=== PATIENT | female | born 1980 | race African-American/Black ===

== ENCOUNTER 2018-08-28 17:45 | Inpatient (IN) | payer MEDICAID ==
--- NOTE | 2018-08-28 20:01 | ER Document Report ---
ED Medical Screen (RME) - General Chief Complaint: Abdominal Pain Stated Complaint: ABDOMINAL PAIN Time Seen by Provider: 08/28/18 19:55 Mode of Arrival: Ambulatory Information source: Patient Notes: 38-year-old female presents emergency department with complaints of diffuse abdominal cramping. She states is been present for the last 2 days. She has had associated nausea but denies any vomiting, diarrhea, constipation. Patient states that she has had an abnormal odor with her urine and abnormal vaginal discharge. The vaginal discharge is a white color. Patient is concerned about sexually transmitted diseases and is requesting a pelvic examination. I have greeted and performed a rapid initial assessment of this patient. A comprehensive ED assessment and evaluation of the patient, analysis of test results and completion of the medical decision making process will be conducted by additional ED providers. PHYSICAL EXAMINATION: GENERAL: Well-appearing, well-nourished and in no acute distress. HEAD: Atraumatic, normocephalic. EYES: Pupils equal round extraocular movements intact, conjunctiva are normal. ENT: Nares patent NECK: Normal range of motion LUNGS: No respiratory distress Musculoskeletal: Normal range of motion NEUROLOGICAL: Normal speech, normal gait. PSYCH: Normal mood, normal affect. SKIN: Warm, Dry, normal turgor, no rashes or lesions noted. TRAVEL OUTSIDE OF THE [place] IN LAST 30 DAYS: No - Related Data Allergies/Adverse Reactions: acetaminophen [From Vicodin] Allergy (Verified 03/17/16 00:00) ciprofloxacin [From Cipro] Allergy (Verified 03/17/16 00:00) ciprofloxacin HCl [From Cipro] Allergy (Verified 03/17/16 00:00) hydrocodone bitartrate [From Vicodin] Allergy (Verified 03/17/16 00:00) Past Medical History Endocrine Medical History: Reports: Hx Hypothyroidism Past Surgical History: Reports: Hx Gynecologic Surgery - D&C - Immunizations Hx Diphtheria, Pertussis, Tetanus Vaccination: Yes Physical Exam - Vital signs Vitals: Temp Pulse Resp BP Pulse Ox 97.7 F 84 20 122/74 100 08/28/18 18:10 08/28/18 18:10 08/28/18 18:10 08/28/18 18:10 08/28/18 18:10 Course - Vital Signs Vital signs: Temp Pulse Resp BP Pulse Ox 97.7 F 84 20 122/74 100 08/28/18 18:10 10/15/18 18:10 08/28/18 18:10 08/28/18 18:10 08/28/18 18:10 Doctor's Discharge - Discharge Referrals: DINAH GARCIA MD [Primary Care Provider] - Follow up as needed
[2018-08-28 20:32] LABS: ABSOLUTE EOSINOPHILS # (AUTO) 0.3 10^3/uL (0.0-0.6); ABSOLUTE MONOCYTES (AUTO) 1.2 10^3/uL (0.1-1.4); ABSOLUTE NEUT (AUTO) 7.1 10^3/uL (1.7-8.2); BASOPHILS % (AUTO) 0.4 % (0-2); EOSINOPHILS % (AUTO) 2.3 % (0-6); HEMATOCRIT 36.8 % (36.0-47.0); HEMOGLOBIN 12.8 g/dL (12.0-15.5); LYMPHOCYTES % (AUTO) 25.7 % (13-45); MEAN CORPUSCULAR HEMOGLOBIN 32.9 pg (27.0-33.4); MEAN CORPUSCULAR HGB CONC 34.9 g/dL (32.0-36.0); MEAN CORPUSCULAR VOLUME 94 fl (80-97); MONOCYTES % (AUTO) 10.5 % (3-13); PLATELET COUNT 472 10^3/uL (150-450); SEGMENTED NEUTROPHILS % (AUTO) 61.1 % (42-78); TOTAL CELLS COUNTED % (AUTO) 100 %; WHITE BLOOD COUNT 11.6 10^3/uL (4.0-10.5)
[2018-08-28 20:52] LABS: ALANINE AMINOTRANSFERASE 16 U/L (9-52); ALBUMIN 4.1 g/dL (3.5-5.0); ALKALINE PHOSPHATASE 57 U/L (38-126); ANION GAP 10 (5-19); ASPARTATE AMINO TRANSFERASE 13 U/L (14-36); BILIRUBIN,DIRECT 0.3 mg/dL (0.0-0.4); BILIRUBIN,TOTAL 0.7 mg/dL (0.2-1.3); BLOOD UREA NITROGEN 8 mg/dL (7-20); CALCIUM 9.1 mg/dL (8.4-10.2); CARBON DIOXIDE 27 mmol/L (22-30); CHLORIDE 103 mmol/L (98-107); GLUCOSE 54 mg/dL (75-110); LIPASE 79.4 U/L (23-300); POTASSIUM 3.8 mmol/L (3.6-5.0); SODIUM 139.6 mmol/L (137-145)
[2018-08-28 21:17] LABS: APPEARANCE,URINE CLOUDY; BILIRUBIN,URINE NEGATIVE (NEGATIVE); COLOR,URINE YELLOW; GLUCOSE, URINE NEGATIVE (NEGATIVE); KETONES,URINE NEGATIVE (NEGATIVE); LEUKOCYTE ESTERASE,URINE LARGE (NEGATIVE); NITRITE,URINE NEGATIVE (NEGATIVE); PROTEIN,URINE NEGATIVE (NEGATIVE); URINE SPECIFIC GRAVITY 1.013
[2018-08-28] MEDS ORDERED: DEXTROSE 50%-WATER 25 GM/50 ML DISP.SYRIN IV ONE (22:04)
[2018-08-28] MEDS ORDERED: NORMAL SALINE 1000 ML 1,000 ML IV ONE (22:06)
--- NOTE | 2018-08-28 22:40 | RADIOLOGY REPORT (SQ) ---
EXAM DESCRIPTION: XR ABDOMEN SUPINE AND ERECT WITH CHEST (ABD ACUTE SERIES) COMPLETED DATE/TME: 08/28/2018 19:59 CLINICAL HISTORY: 38 years, Female, diffuse abdominal pain COMPARISON: EXAM DESCRIPTION: CLINICAL HISTORY: diffuse abdominal pain COMPARISON: None FINDINGS: Frontal view of the chest and supine and upright images of the abdomen were submitted. Cardiac silhouette is within normal limits. There is no focal parenchymal or pleural disease. There is no free air in the abdomen. There is no evidence of bowel obstruction. IMPRESSION: No acute abnormalities. NUMBER OF VIEWS: TECHNIQUE: LIMITATIONS: None. FINDINGS: IMPRESSION: 2010 [facility] [employer]- All Rights Reserved
--- NOTE | 2018-08-28 23:04 | ER Document Report ---
ED GI/ <CHANTELLE ZAMORA - Last Filed: 08/28/18 23:05> - General Mode of Arrival: Ambulatory Information source: Patient TRAVEL OUTSIDE OF THE [place] IN LAST 30 DAYS: No - HPI Patient complains to provider of: Abdominal pain Onset: Last week Timing/Duration: Gradual Quality of pain: Achy, Dull Severity at maximum: Severe Severity in ED: Severe Pain Level: 5 Location: Suprapubic Vaginal bleeding (Compared to normal period): None OB ultrasound done: No Sexual history: Active, Unprotected intercourse Exacerbated by: Movement Relieved by: Remaining still Similar symptoms previously: No Recently seen / treated by doctor: No <DEJON GALAVIZ - Last Filed: 08/29/18 05:17> - General Chief Complaint: Abdominal Pain Stated Complaint: ABDOMINAL PAIN Time Seen by Provider: 08/28/18 19:55 - Related Data Allergies/Adverse Reactions: acetaminophen [From Vicodin] Allergy (Verified 03/17/16 00:00) ciprofloxacin [From Cipro] Allergy (Verified 03/17/16 00:00) ciprofloxacin HCl [From Cipro] Allergy (Verified 03/17/16 00:00) hydrocodone bitartrate [From Vicodin] Allergy (Verified 03/17/16 00:00) Penicillins Allergy (Verified 08/29/18 03:26) Past Medical History - General Information source: Patient - Social History Smoking Status: Unknown if Ever Smoked Family History: Reviewed & Not Pertinent Patient has suicidal ideation: No Patient has homicidal ideation: No Endocrine Medical History: Reports: Hx Hypothyroidism Renal/ Medical History: Denies: Hx Peritoneal Dialysis Past Surgical History: Reports: Hx Gynecologic Surgery - D&C - Immunizations Hx Diphtheria, Pertussis, Tetanus Vaccination: Yes <DEJON GALAVIZ - Last Filed: 08/29/18 05:17> Review of Systems - Review of Systems Constitutional: denies: Chills, Fever EENT: No symptoms reported Cardiovascular: No symptoms reported Respiratory: No symptoms reported Gastrointestinal: Abdominal pain Genitourinary: No symptoms reported Female Genitourinary: Vaginal discharge Musculoskeletal: No symptoms reported Skin: No symptoms reported Hematologic/Lymphatic: No symptoms reported Neurological/Psychological: No symptoms reported -: Yes All other systems reviewed and negative <DEJON GALAVIZ - Last Filed: 08/29/18 05:17> Physical Exam - Genitourinary External exam: Normal Speculum exam: Cervix closed, Vaginal discharge - gree tinged Vaginal bleeding: None Bimanuel exam: Cervical motion tender, Adnexal tenderness. No: Bladder/ Urethral tender, Adnexal mass, Uterus enlarged <CHANTELLE ZAMORA - Last Filed: 08/28/18 23:05> - Vital signs Interpretation: Normal - General General appearance: Appears well, Alert - HEENT Head: Normocephalic, Atraumatic Eyes: Normal Pupils: PERRL - Respiratory Respiratory status: No respiratory distress Chest status: Nontender Breath sounds: Normal Chest palpation: Normal - Cardiovascular Rhythm: Regular Heart sounds: Normal auscultation Murmur: No - Abdominal Inspection: Normal Distension: No distension Bowel sounds: Normal Tenderness: Tender - RLQ Organomegaly: No organomegaly - Back Back: Normal, Nontender - Extremities General upper extremity: Normal inspection, Nontender, Normal color, Normal ROM , Normal temperature General lower extremity: Normal inspection, Nontender, Normal color, Normal ROM , Normal temperature, Normal weight bearing. No: Kerri's sign - Neurological Neuro grossly intact: Yes Cognition: Normal Orientation: AAOx4 [place] Coma Scale Eye Opening: Spontaneous [place] Coma Scale Verbal: Oriented [place] Coma Scale Motor: Obeys Commands [place] Coma Scale Total: 15 Speech: Normal Motor strength normal: LUE, RUE, LLE, RLE Sensory: Normal - Psychological Associated symptoms: Normal affect, Normal mood - Skin Skin Temperature: Warm Skin Moisture: Dry Skin Color: Normal <DEJON GALAVIZ C - Last Filed: 08/29/18 05:17> - Vital signs Vitals: Temp Pulse Resp BP Pulse Ox 97.7 F 84 20 122/74 100 08/28/18 18:10 08/28/18 18:10 08/28/18 18:10 08/28/18 18:10 08/28/18 18:10 Course - Laboratory Result Diagrams: 08/28/18 20:08 08/28/18 20:08 <CHANTELLE ZAMORA - Last Filed: 08/28/18 23:05> - Laboratory Result Diagrams: 08/28/18 20:08 08/28/18 20:08 - Diagnostic Test Radiology reviewed: Image reviewed, Reports reviewed - Transfer of Care Care transferred to following provider: I discussed patient care with the OB/ PAINTER MAINTENANCE doctor fire control system installer Dr Ibarra. <DEJON GALAVIZ - Last Filed: 08/29/18 05:17> - Vital Signs Vital signs: Temp Pulse Resp BP Pulse Ox 98.2 F 99 16 123/79 97 08/28/18 23:09 08/28/18 23:09 08/28/18 23:09 08/28/18 23:09 08/28/18 23:09 - Laboratory Laboratory results interpreted by me: 08/28/18 08/28/18 08/28/18 20:08 20:08 21:00 WBC 11.6 H Plt Count 472 H Glucose 54 L AST 13 L Urine Blood MODERATE H Urine Urobilinogen 2.0 H Ur Leukocyte Esterase LARGE H - Transfer of Care Notes: 08/29/18 03:11 Abdominal pain. Pelvic inflammatory disease. Tubo-ovarian abscess. (DEJON GALAVIZ) Critical Care Note - Critical Care Note Total time excluding time spent on procedures (mins): 50 <DEJON GALAVIZ - Last Filed: 08/29/18 05:17> Discharge <CHANTELLE ZAMORA - Last Filed: 08/28/18 23:05> - Discharge Admitting Provider: Dr Dana Ibarra Unit Admitted: Post <DEJON GALAVIZ - Last Filed: 08/29/18 05:17> - Discharge Clinical Impression: PID (acute pelvic inflammatory disease), TOA (tubo-ovarian abscess) Abdominal pain Qualifiers: Abdominal location: right lower quadrant Qualified Code(s): R10.31 - Right lower quadrant pain Condition: Stable Disposition: ADMITTED INPATIENT Referrals: DINAH GARCIA MD [ACTIVE STAFF] - Follow up as needed
[2018-08-28] MEDS ORDERED: CEFTRIAXONE 2 GM/D5W RTU 2 GM/50 ML RTUPB IV ONE (23:06)
[2018-08-28] MEDS ORDERED: ONDANSETRON HCL INJ/PF 4 MG/2 ML SDV IV ONE (23:07)
[2018-08-28] MEDS ORDERED: DOXYCYCLINE HYCLATE 100 MG TABLET PO ONE (23:07)
[2018-08-28] MEDS ORDERED: METRONIDAZOLE 500 MG TABLET PO ONE (23:07)
[2018-08-28] MEDS ORDERED: AZITHROMYCIN 250 MG TABLET PO ONE (23:08)
[2018-08-28 23:19] LABS: BACTERIA (WET MOUNT) 4+ BACTERIA SEEN; EPITHELIALS (WET MOUNT) 3+ EPITHELIALS SEEN; T.VAGINALIS (WET MOUNT) TRICHOMONAS SEEN; WBCS (WET MOUNT) 3+ WBCS SEEN; YEAST (WET MOUNT) NO YEAST SEEN
--- NOTE | 2018-08-29 00:25 | RADIOLOGY REPORT (SQ) ---
EXAM DESCRIPTION: US TRANSVAGINAL COMPLETED DATE/TME: 08/28/2018 23:04 CLINICAL HISTORY: 38 years Female Pelvic pain COMPARISON: None. TECHNIQUE: Transvaginal duplex imaging performed to evaluate the pelvis. FINDINGS: Uterus measures 10.4 x 5.7 cm. Small amount of free fluid in the cul-de-sac. Cervix measures 3.7 cm and is closed. Endometrial stripe 7 mm. Echogenic heterogeneous area in the posterior aspect of the uterine body likely a small fibroid measuring 2 x 2.2 cm. Dilated thick walled serpiginous structure in the right adnexa with echogenic debris. Findings suggest pyosalpinx. The right ovary is not clearly identified. Left ovary is not seen. IMPRESSION: Probable fibroid uterus Small amount of free fluid Dilated thick walled structure in the right adnexa with internal debris suggesting possible pyosalpinx. This could be further evaluated with contrast-enhanced CT Neither ovary is clearly identified
[2018-08-29] MEDS ORDERED: CEFTRIAXONE INJ 1000 MG VIAL ONE (00:45)
[2018-08-29 00:51] LABS: CHLAM PCR NOT DETECTED (NOT DETECT); GON PCR NOT DETECTED (NOT DETECT)
[2018-08-29] MEDS ORDERED: HYDROMORPHONE HCL INJ/PF 2 MG/ML AMPULE IV ONE ×3 (00:53→07:45)
[2018-08-29] MEDS ORDERED: METRONIDAZOLE 500 MG TABLET PO ONE (02:00)
--- NOTE | 2018-08-29 05:07 | RADIOLOGY REPORT (SQ) ---
EXAM DESCRIPTION: CT ABDOMEN PELVIS WITH IV CONTRAST COMPLETED DATE/TME: 08/28/2018 22:04 CLINICAL HISTORY: GENERALIZED abdominal pain COMPARISON: None Available. TECHNIQUE: CT of the abdomen and pelvis performed following IV administration of 80 mL of Omnipaque 350. DLP: 1759.65 mGycm FINDINGS: Lung Bases: The visualized lung bases are clear. Bones: No destructive bone lesions identified. Abdomen: Liver: The liver has normal size and density. No intrahepatic mass or biliary dilatation. Gallbladder: No calcified gallstones. Spleen, Pancreas, and Adrenal Glands: The spleen, pancreas, and adrenal glands are unremarkable. Kidneys: The kidneys have normal size and contour without evidence of solid mass or hydronephrosis. Vasculature: The aorta and IVC have normal caliber and position. The portal vein is patent. The proximal visceral and renal arteries are patent. Stomach: The stomach and duodenum have normal course. Other: No free intraperitoneal air. Mild shotty periaortic lymph nodes are likely reactive. Pelvis: Bladder: Urinary bladder is unremarkable. Bowel: No dilated loops of large or small bowel. Appendix: Normal appendix. Pelvis: Thick-walled tubular structure in the right adnexa with adjacent fat stranding. Small amount of free pelvic fluid. This structure measures approximately 4.5 x 3.8 cm in greatest axial dimensions. The right ovary is not well delineated. IMPRESSION: 1. Thick-walled tubular structure in the posterior right adnexa with adjacent inflammatory change. These findings are most consistent with pyosalpinx. Differential considerations include hydrosalpinx, tubo-ovarian abscess and adnexal torsion. Urgent finding reported to Dr. Tolbert at 08/29/2018 4:04 AM CDT This exam was performed according to our departmental dose-optimization program, which includes automated exposure control, adjustment of the mA and/or kV according to patient size and/or use of iterative reconstruction technique.
--- NOTE | 2018-08-29 07:29 | PDOC H&P ---
History of Present Illness Admission Date/PCP: 08/29/18 05:28 CYN SERNA Patient complains of: Lower abdominal pain and chest pain History of Present Illness: COLEMAN HENRIQUEZ is a 38 year old , presented to the emergency department secondary to lower abdominal pain which started on Tuesday. Patient stated that she also had some chest pain which made it hard to breathe. Patient denies any abnormal vaginal discharge. She stated that she had foul- smelling urine. Patient denies fevers but had some chills. She admitted to nausea but no vomiting. She is not currently using contraception. She admits to having several sexual partners without using contraception. Patient admitted to a history of PID with the ParaGard IUD in 2016 Past Medical History Menses: Irregular, heavy and painful Gynecological Infection: Yes - History of PID in 2016 Obstetrical History: none - Endocrine Medical History: Reports: Hypothyroidism Past Surgical History Past Surgical History: Reports: Other - Elective x 3 Social History Occupation: Works with [email or web address] Lives with: Family Smoking Status: Current Every Day Smoker Cigarettes Packs Per Day: 1 Frequency of Alcohol Use: Social Hx Recreational Drug Use: Yes - 2 days ago Drugs: Marijuana Family History Family History: Reviewed & Not Pertinent Parental Family History Reviewed: No Children Family History Reviewed: NA Sibling(s) Family History Reviewed.: NA Medication/Allergy Home Medications: Levonorgestrel [Mirena] 1 each IY 08/21/12 Oxycodone HCl/Acetaminophen [Percocet 5-325 mg Tablet] 1 - 2 tab PO ASDIR PRN # 15 tablet 08/21/12 Metronidazole [Flagyl 500 mg Tablet] 500 mg PO TID #30 tablet 07/24/15 Oxycodone HCl/Acetaminophen [Percocet 5-325 mg Tablet] 1 - 2 tab PO ASDIR PRN # 15 tablet 07/24/15 Cyclobenzaprine HCl [Flexeril 10 mg Tablet] 10 mg PO TIDP PRN #15 tab 11/10/15 Oxycodone HCl/Acetaminophen [Percocet 5-325 mg Tablet] 1 - 2 tab PO Q4H PRN #25 tablet 11/10/15 Cyclobenzaprine HCl [Flexeril 10 mg Tablet] 10 mg PO TIDP PRN #15 tab 11/24/15 Oxycodone HCl/Acetaminophen [Percocet 5-325 mg Tablet] 1 - 2 tab PO Q4H PRN #25 tablet 11/24/15 Cyclobenzaprine HCl [Flexeril 5 mg Tablet] 5 mg PO TID #10 tablet 03/17/16 Naproxen [Naprosyn 375 mg Tablet] 375 mg PO BID #14 tablet 03/17/16 Allergies/Adverse Reactions: acetaminophen [From Vicodin] Allergy (Verified 03/17/16 00:00) ciprofloxacin [From Cipro] Allergy (Verified 03/17/16 00:00) ciprofloxacin HCl [From Cipro] Allergy (Verified 03/17/16 00:00) hydrocodone bitartrate [From Vicodin] Allergy (Verified 03/17/16 00:00) Penicillins Allergy (Verified 08/29/18 03:26) Review of Systems Constitutional: ABSENT: as per HPI, anorexia, chills, fatigue, fever(s), headache(s), night sweats, weakness, weight gain, weight loss, other Cardiovascular: PRESENT: chest pain - chest pain started on Tuesday Respiratory: ABSENT: as per HPI, cough, dyspnea, hemoptysis, sputum, other Gastrointestinal: PRESENT: abdominal pain, nausea Genitourinary: PRESENT: other - foul smelling urine Neurological: PRESENT: other - ADD Psychiatric: ABSENT: as per HPI, anxiety, depression, hallucinations, homidical ideation, suicidal ideation, other Physical Exam - Physical Exam Vital Signs: Temp Pulse Resp BP Pulse Ox 98.6 F 95 16 125/75 98 08/29/18 03:00 08/29/18 03:00 08/29/18 03:00 08/29/18 03:00 08/29/18 03:00 General appearance: PRESENT: no acute distress, well-developed, well-nourished Respiratory exam: PRESENT: clear to auscultation iggy Cardiovascular exam: PRESENT: RRR GI/Abdominal exam: PRESENT: normal bowel sounds, soft, tenderness - tenderness elicited Extremities exam: ABSENT: calf tenderness, clubbing, full ROM, joint swelling, pedal edema, tenderness, +1 edema, +2 edema, other - Gynecological Exam Labia: normal Urethra: normal Introitus: normal Perineum: normal Vagina: discharge Cervix: tender, discharge Cervix: tender Uterus: normal Adhexa: tender - SSE performed by SENIOR INTERACTIVE PRODUCER in the ED Result Impressions: Acute Abdomen Series 08/28/18 19:59 IMPRESSION: No acute abnormalities. NUMBER OF VIEWS: TECHNIQUE: LIMITATIONS: None. FINDINGS: IMPRESSION: 2010 [employer]- All Rights Reserved Abdomen/Pelvis CT 08/28/18 22:04 IMPRESSION: 1. Thick-walled tubular structure in the posterior right adnexa with adjacent inflammatory change. These findings are most consistent with pyosalpinx. Differential considerations include hydrosalpinx, tubo-ovarian abscess and adnexal torsion. Urgent finding reported to Dr. Tolbert at 08/29/2018 4:04 AM CDT This exam was performed according to our departmental dose-optimization program, which includes automated exposure control, adjustment of the mA and/or kV according to patient size and/or use of iterative reconstruction technique. Transvaginal US 08/28/18 23:04 IMPRESSION: Probable fibroid uterus Small amount of free fluid Dilated thick walled structure in the right adnexa with internal debris suggesting possible pyosalpinx. This could be further evaluated with contrast-enhanced CT Neither ovary is clearly identified Assessment & Plan - Diagnosis (1) Abdominal pain Qualifiers: Abdominal location: right lower quadrant Qualified Code(s): R10.31 - Right lower quadrant pain (2) PID (acute pelvic inflammatory disease) Is this a current diagnosis for this admission?: Yes (3) TOA (tubo-ovarian abscess) Is this a current diagnosis for this admission?: Yes (4) Tobacco abuse Is this a current diagnosis for this admission?: Yes - Plan Summary Plan Summary: Plan: 1. IV antibiotics 2. Monitor closely--will wait to see if the antibiotics resolve abscess 3. Nicotine patch
[2018-08-29] MEDS ORDERED: HYDROMORPHONE HCL INJ/PF 2 MG/ML AMPULE ONE (07:42)
[2018-08-29] MEDS ORDERED: CEFOXITIN INJ 1 GM VIAL IV SCH (07:45)
[2018-08-29] MEDS ORDERED: DOXYCYCLINE HYCLATE INJ 100 MG VIAL IV SCH (07:45)
[2018-08-29] MEDS ORDERED: NICOTINE 21 MG/24 HR PATCH.TD24 TD ONE (09:00)
[2018-08-29] MEDS ORDERED: RINGERS SOLUTION,LACTATED 1,000 ML IV ONE (09:00)
[2018-08-29] MEDS: METRONIDAZOLE 500 MG/NS RTU 500 MG/100 ML RTUPB IV SCH ×2 (09:20→17:23)
[2018-08-29] MEDS: KETOROLAC TROMETHAMINE INJ/PF 30 MG/1 ML SDV IV PRN ×3 (09:28→21:50)
[2018-08-29] MEDS: DOXYCYCLINE HYCLATE 100 MG in DEXTROSE 5%-WATER 250 ML IV SCH ×2 (10:23→21:49)
[2018-08-29] MEDS: CEFOXITIN SODIUM 2 GM in DEXTROSE 5%-WATER 100 ML IV SCH ×2 (12:31→18:37)
[2018-08-29] MEDS: RINGERS SOLUTION,LACTATED 1,000 ML IV PRN (13:09)
[2018-08-29] MEDS: HYDROMORPHONE HCL INJ/PF 2 MG/ML AMPULE IV PRN ×2 (13:12→17:29)
[2018-08-29] MEDS: PROMETHAZINE HCL INJ 25 MG/1 ML VIAL IV PRN (18:37)
[2018-08-30] MEDS: HYDROMORPHONE HCL INJ/PF 2 MG/ML AMPULE IV PRN ×4 (00:41→19:54)
[2018-08-30] MEDS: METRONIDAZOLE 500 MG/NS RTU 500 MG/100 ML RTUPB IV SCH ×3 (02:24→18:12)
[2018-08-30] MEDS: CEFOXITIN SODIUM 2 GM in DEXTROSE 5%-WATER 100 ML IV SCH ×6 (06:00→23:13)
[2018-08-30] MEDS: RINGERS SOLUTION,LACTATED 1,000 ML IV PRN ×2 (06:45→22:27)
--- NOTE | 2018-08-30 08:40 | PDOC PROGRESS REPORT ---
Subjective Progress Note for:: 08/30/18 Subjective:: Complaint of fever and pain. Reason For Visit: ABDOMINAL PAIN,ACUTE PELVIC INFLAMMATORY DISEASE Physical Exam - Physical Exam Vital Signs: Temp Pulse Resp BP Pulse Ox 98.1 F 77 16 120/75 97 08/30/18 03:58 08/30/18 03:58 08/30/18 03:58 08/30/18 03:58 08/30/18 03:58 Intake & Output 08/29/18 08/30/18 08/31/18 06:59 06:59 06:59 Intake Total 4500 Balance 4500 General appearance: PRESENT: mild distress - abdominal exam shows pelvic tenderness as expected - Gynecological Exam Labia: normal Urethra: normal Introitus: normal Perineum: normal Vagina: discharge Cervix: tender, discharge Cervix: tender Uterus: normal Adhexa: tender - SSE performed by POISER BALANCE in the ED Result Impressions: Acute Abdomen Series 08/28/18 19:59 IMPRESSION: No acute abnormalities. NUMBER OF VIEWS: TECHNIQUE: LIMITATIONS: None. FINDINGS: IMPRESSION: 2010 [id number]- All Rights Reserved Abdomen/Pelvis CT 08/28/18 22:04 IMPRESSION: 1. Thick-walled tubular structure in the posterior right adnexa with adjacent inflammatory change. These findings are most consistent with pyosalpinx. Differential considerations include hydrosalpinx, tubo-ovarian abscess and adnexal torsion. Urgent finding reported to Dr. Tolbert at 08/29/2018 4:04 AM CDT This exam was performed according to our departmental dose-optimization program, which includes automated exposure control, adjustment of the mA and/or kV according to patient size and/or use of iterative reconstruction technique. Transvaginal US 08/28/18 23:04 IMPRESSION: Probable fibroid uterus Small amount of free fluid Dilated thick walled structure in the right adnexa with internal debris suggesting possible pyosalpinx. This could be further evaluated with contrast-enhanced CT Neither ovary is clearly identified Assessment & Plan - Diagnosis (1) PID (acute pelvic inflammatory disease) Is this a current diagnosis for this admission?: Yes - Time Time Spent with patient: 15-24 minutes Medications reviewed and adjusted accordingly: Yes Anticipated discharge: Home Within: within 48 hours - Plan Summary Plan Summary: Continue antibiotics for now. Continue pain management.
[2018-08-30] MEDS: DOXYCYCLINE HYCLATE 100 MG in DEXTROSE 5%-WATER 250 ML IV SCH ×2 (10:27→22:25)
[2018-08-30] MEDS: NICOTINE 21 MG/24 HR PATCH.TD24 TD SCH (17:18)
[2018-08-30] MEDS: KETOROLAC TROMETHAMINE INJ/PF 30 MG/1 ML SDV IV PRN (17:23)
[2018-08-30] MEDS: OXYCODONE-ACETAMINOPHEN 5-325 MG TABLET PO PRN (23:11)
[2018-08-31] MEDS: PROMETHAZINE HCL INJ 25 MG/1 ML VIAL IV PRN (01:03)
[2018-08-31] MEDS: METRONIDAZOLE 500 MG/NS RTU 500 MG/100 ML RTUPB IV SCH ×3 (01:03→17:26)
[2018-08-31] MEDS: CEFOXITIN SODIUM 2 GM in DEXTROSE 5%-WATER 100 ML IV SCH ×3 (05:35→18:45)
[2018-08-31] MEDS: HYDROMORPHONE HCL INJ/PF 2 MG/ML AMPULE IV PRN ×3 (07:53→18:50)
[2018-08-31] MEDS: NICOTINE 21 MG/24 HR PATCH.TD24 TD SCH (09:26)
[2018-08-31] MEDS: DOXYCYCLINE HYCLATE 100 MG in DEXTROSE 5%-WATER 250 ML IV SCH ×2 (10:34→21:50)
[2018-08-31] MEDS: OXYCODONE-ACETAMINOPHEN 5-325 MG TABLET PO PRN (17:25)
[2018-08-31] MEDS: RINGERS SOLUTION,LACTATED 1,000 ML IV PRN (17:33)
--- NOTE | 2018-08-31 18:30 | PDOC PROGRESS REPORT ---
Subjective Progress Note for:: 08/31/18 Subjective:: still intermittently requiring iv pain meds latest at approximately 1800 this evening, mild nausea relieved with meds, pain improved but still occasionally 5/ 5 Reason For Visit: ABDOMINAL PAIN,ACUTE PELVIC INFLAMMATORY Physical Exam - Physical Exam Vital Signs: Temp Pulse Resp BP Pulse Ox 98.4 F 103 H 20 151/90 H 99 08/31/18 15:39 08/31/18 15:39 08/31/18 15:39 08/31/18 15:39 08/31/18 15:39 Intake & Output 08/30/18 08/31/18 09/01/18 06:59 06:59 06:59 Intake Total 4500 2680 2850 Output Total 1650 900 Balance 4500 1030 1950 General appearance: PRESENT: no acute distress, well-developed, well-nourished Respiratory exam: PRESENT: clear to auscultation iggy, symmetrical, unlabored Cardiovascular exam: PRESENT: RRR. ABSENT: diastolic murmur, rubs, systolic murmur Pulses: PRESENT: normal dorsalis pedis pul, +2 pedal pulses bilateral Vascular exam: PRESENT: normal capillary refill GI/Abdominal exam: PRESENT: normal bowel sounds, soft, tenderness - diffuse lower abdomen, Right greater than left. no peritoneal signs. ABSENT: distended , guarding, mass, organolmegaly, rebound Rectal exam: PRESENT: deferred Extremities exam: PRESENT: full ROM. ABSENT: calf tenderness, clubbing, pedal edema Neurological exam: PRESENT: alert, awake, oriented to person, oriented to place , oriented to time, oriented to situation, CN II-XII grossly intact. ABSENT: motor sensory deficit Psychiatric exam: PRESENT: appropriate affect, normal mood. ABSENT: homicidal ideation, suicidal ideation - Gynecological Exam Labia: normal Urethra: normal Introitus: normal Perineum: normal Vagina: discharge Cervix: tender, discharge Cervix: tender Uterus: normal Adhexa: tender - SSE performed by CLICKING MACHINE OPERATOR in the ED Result Impressions: Acute Abdomen Series 08/28/18 19:59 IMPRESSION: No acute abnormalities. NUMBER OF VIEWS: TECHNIQUE: LIMITATIONS: None. FINDINGS: IMPRESSION: 2010 [employer]- All Rights Reserved Abdomen/Pelvis CT 08/28/18 22:04 IMPRESSION: 1. Thick-walled tubular structure in the posterior right adnexa with adjacent inflammatory change. These findings are most consistent with pyosalpinx. Differential considerations include hydrosalpinx, tubo-ovarian abscess and adnexal torsion. Urgent finding reported to Dr. Tolbert at 08/29/2018 4:04 AM CDT This exam was performed according to our departmental dose-optimization program, which includes automated exposure control, adjustment of the mA and/or kV according to patient size and/or use of iterative reconstruction technique. Transvaginal US 08/28/18 23:04 IMPRESSION: Probable fibroid uterus Small amount of free fluid Dilated thick walled structure in the right adnexa with internal debris suggesting possible pyosalpinx. This could be further evaluated with contrast-enhanced CT Neither ovary is clearly identified Status: Imported from PACS Assessment & Plan - Diagnosis (1) PID (acute pelvic inflammatory disease) Is this a current diagnosis for this admission?: Yes Plan: cont IV abx tonight and begin po abx in am (2) TOA (tubo-ovarian abscess) Is this a current diagnosis for this admission?: Yes Plan: continue IV abx for now then in am when 48 hours from temp 99.5 will begin po abx. Reviewed no more IV meds and goals of po pain meds and goal of discharge (3) Tobacco abuse Is this a current diagnosis for this admission?: Yes Plan: nicotine patch continue. Smoking cessation recommended - Time Time Spent with patient: 15-24 minutes Smoking Cessation Education: 3 to 10 minutes Medications reviewed and adjusted accordingly: Yes Anticipated discharge: Home Within: within 24 hours - Inpatient Certification Based on my medical assessment, after consideration of the patient's comorbidities, presenting symptoms, or acuity I expect that the services needed warrant INPATIENT care.: Yes I certify that my determination is in accordance with my understanding of Medicare's requirements for reasonable and necessary INPATIENT services [42 CFR 412.3e].: Yes Medical Necessity: Failure to Improve With Outpatient Therapy, Need for Pain Control, Need for IV Antibiotics
[2018-08-31] MEDS ORDERED: PROMETHAZINE HCL 25 MG TABLET PO PRN (20:49)
[2018-09-01] MEDS: OXYCODONE-ACETAMINOPHEN 5-325 MG TABLET PO PRN ×3 (01:23→11:27)
[2018-09-01] MEDS: CEFOXITIN SODIUM 2 GM in DEXTROSE 5%-WATER 100 ML IV SCH (02:01)
[2018-09-01] MEDS: METRONIDAZOLE 500 MG/NS RTU 500 MG/100 ML RTUPB IV SCH (02:45)
[2018-09-01] MEDS ORDERED: CEFOXITIN SODIUM 2 GM in DEXTROSE 5%-WATER 100 ML IV SCH (09:00)
[2018-09-01] MEDS ORDERED: METRONIDAZOLE 500 MG TABLET PO SCH (10:00)
[2018-09-01] MEDS ORDERED: DOXYCYCLINE HYCLATE 100 MG TABLET PO SCH (10:00)
[2018-09-01] MEDS: NICOTINE 21 MG/24 HR PATCH.TD24 TD SCH (10:03)
--- NOTE | 2018-09-01 10:17 | PDOC PROGRESS REPORT ---
Subjective Progress Note for:: 09/01/18 Subjective:: Patient states that she is ready to go home; pain managed with p.o. meds. She denies chest pain shortness of breath, fever/chills or nausea/vomiting. She is ambulating voiding without difficulty. Reason For Visit: ABDOMINAL PAIN,ACUTE PELVIC INFLAMMATORY Physical Exam - Physical Exam Vital Signs: Temp Pulse Resp BP Pulse Ox 98.0 F 80 16 134/74 H 97 09/01/18 08:25 09/01/18 08:25 09/01/18 08:25 09/01/18 08:25 09/01/18 08:25 Intake & Output 08/31/18 09/01/18 09/02/18 06:59 06:59 06:59 Intake Total 2680 3050 Output Total 1650 900 Balance 1030 2150 General appearance: PRESENT: no acute distress Respiratory exam: PRESENT: clear to auscultation iggy Cardiovascular exam: PRESENT: RRR GI/Abdominal exam: PRESENT: normal bowel sounds, soft, tenderness Extremities exam: ABSENT: calf tenderness, clubbing, full ROM, joint swelling, pedal edema, tenderness, +1 edema, +2 edema, other - Gynecological Exam Labia: normal Urethra: normal Introitus: normal Perineum: normal Vagina: discharge Cervix: tender, discharge Cervix: tender Uterus: normal Adhexa: tender - SSE performed by SEWER MAINTENANCE SUPERVISOR in the ED Result Impressions: Acute Abdomen Series 08/28/18 19:59 IMPRESSION: No acute abnormalities. NUMBER OF VIEWS: TECHNIQUE: LIMITATIONS: None. FINDINGS: IMPRESSION: 2010 [employer]- All Rights Reserved Abdomen/Pelvis CT 08/28/18 22:04 IMPRESSION: 1. Thick-walled tubular structure in the posterior right adnexa with adjacent inflammatory change. These findings are most consistent with pyosalpinx. Differential considerations include hydrosalpinx, tubo-ovarian abscess and adnexal torsion. Urgent finding reported to Dr. Tolbert at 08/29/2018 4:04 AM CDT This exam was performed according to our departmental dose-optimization program, which includes automated exposure control, adjustment of the mA and/or kV according to patient size and/or use of iterative reconstruction technique. Transvaginal US 08/28/18 23:04 IMPRESSION: Probable fibroid uterus Small amount of free fluid Dilated thick walled structure in the right adnexa with internal debris suggesting possible pyosalpinx. This could be further evaluated with contrast-enhanced CT Neither ovary is clearly identified Assessment & Plan - Diagnosis (1) Abdominal pain Qualifiers: Abdominal location: right lower quadrant Qualified Code(s): R10.31 - Right lower quadrant pain Is this a current diagnosis for this admission?: Yes (2) PID (acute pelvic inflammatory disease) Is this a current diagnosis for this admission?: Yes (3) TOA (tubo-ovarian abscess) Is this a current diagnosis for this admission?: Yes (4) Tobacco abuse Is this a current diagnosis for this admission?: Yes - Plan Summary Plan Summary: Plan: 1. Discharge home today 2. Complete course of antibiotics 3. Follow-up in the office in 2 weeks or sooner if needed
--- NOTE | 2018-09-01 10:32 | PDOC DISCHARGE SUMMARY ---
General - Admit/Disc Date/PCP Admission Date/Primary Care Provider: 08/29/18 05:28 Discharge Date: 09/01/18 - Discharge Diagnosis (1) Abdominal pain Is this a current diagnosis for this admission?: Yes (2) PID (acute pelvic inflammatory disease) Is this a current diagnosis for this admission?: Yes (3) TOA (tubo-ovarian abscess) Is this a current diagnosis for this admission?: Yes (4) Tobacco abuse Is this a current diagnosis for this admission?: Yes - Additional Information Discharge Diet: Regular Discharge Activity: Activity As Tolerated Prescriptions: Doxycycline Hyclate [Vibramycin 100 mg Tablet] 100 mg PO Q12 14 Days #28 tablet Fluconazole [Diflucan] 150 mg PO ONCE PRN #1 tablet PRN Reason: Ibuprofen 800 mg PO Q8HP PRN #30 tablet PRN Reason: Abdominal Cramping Metronidazole [Flagyl 500 mg Tablet] 500 mg PO Q12 14 Days #28 tablet Nicotine [Nicoderm 21 mg/24 Hr Transderm Patch] 1 each TD DAILY 30 Days #30 patch.td24 NS Oxycodone HCl/Acetaminophen [Percocet 5-325 mg Tablet] 1 tab PO Q6HP PRN 5 Days #20 tablet NS PRN Reason: Home Medications: Dextroamphetamine/Amphetamine [Adderall 20 mg Tablet] 20 mg PO BID 08/29/18 Diazepam [Valium 5 mg Tablet] 5 mg PO DAILYP PRN 08/29/18 Gabapentin [Neurontin 300 mg Capsule] 300 mg PO Q12 08/29/18 Mirtazapine [Remeron 15 mg Tablet] 7.5 mg PO HSP PRN 08/29/18 Doxycycline Hyclate [Vibramycin 100 mg Tablet] 100 mg PO Q12 14 Days #28 tablet 09/01/18 Fluconazole [Diflucan] 150 mg PO ONCE PRN #1 tablet 09/01/18 Ibuprofen 800 mg PO Q8HP PRN #30 tablet 09/01/18 Metronidazole [Flagyl 500 mg Tablet] 500 mg PO Q12 14 Days #28 tablet 09/01/18 Nicotine [Nicoderm 21 mg/24 Hr Transderm Patch] 1 each TD DAILY 30 Days #30 patch.td24 NS 09/01/18 Oxycodone HCl/Acetaminophen [Percocet 5-325 mg Tablet] 1 tab PO Q6HP PRN 5 Days #20 tablet NS 09/01/18 History of Present Illness History of Present Illness: COLEMAN HENRIQUEZ is a 38 year old , presented to the emergency department secondary to lower abdominal pain which started on Tuesday. Patient stated that she also had some chest pain which made it hard to breathe. Patient denies any abnormal vaginal discharge. She stated that she had foul- smelling urine. Patient denies fevers but had some chills. She admitted to nausea but no vomiting. She is not currently using contraception. She admits to having several sexual partners without using contraception. Patient admitted to a history of PID with the ParaGard IUD in 2015 Physical Exam - Physical Exam Vital Signs: Temp Pulse Resp BP Pulse Ox 98.0 F 80 16 134/74 H 97 09/01/18 08:25 09/01/18 08:25 09/01/18 08:25 09/01/18 08:25 09/01/18 08:25 Intake & Output 08/31/18 09/01/18 09/02/18 06:59 06:59 06:59 Intake Total 2680 3050 Output Total 1650 900 Balance 1030 2150 - Gynecological Exam Labia: normal Urethra: normal Introitus: normal Perineum: normal Vagina: discharge Cervix: tender, discharge Cervix: tender Uterus: normal Adhexa: tender - SSE performed by COTTON AGENT in the ED Result Impressions: Acute Abdomen Series 08/28/18 19:59 IMPRESSION: No acute abnormalities. NUMBER OF VIEWS: TECHNIQUE: LIMITATIONS: None. FINDINGS: IMPRESSION: 2010 [employer]- All Rights Reserved Abdomen/Pelvis CT 08/28/18 22:04 IMPRESSION: 1. Thick-walled tubular structure in the posterior right adnexa with adjacent inflammatory change. These findings are most consistent with pyosalpinx. Differential considerations include hydrosalpinx, tubo-ovarian abscess and adnexal torsion. Urgent finding reported to Dr. Tolbert at 08/29/2018 4:04 AM CDT This exam was performed according to our departmental dose-optimization program, which includes automated exposure control, adjustment of the mA and/or kV according to patient size and/or use of iterative reconstruction technique. Transvaginal US 08/28/18 23:04 IMPRESSION: Probable fibroid uterus Small amount of free fluid Dilated thick walled structure in the right adnexa with internal debris suggesting possible pyosalpinx. This could be further evaluated with contrast-enhanced CT Neither ovary is clearly identified
[2018-09-01 11:14] VITALS: BP 138/75
== END 2018-09-01 12:20 | disposition home or self-care (01) | DRG 759 ==
LOC: ER 17:45 → EH 08-29 05:28 → 2N 08-29 06:27
PROVIDERS: ADMIT Obstetrics & Gynecology; ATTEND Obstetrics & Gynecology
DX: N73.0 Acute parametritis and pelvic cellulitis (principal); N70.93 Salpingitis and oophoritis, unspecified; F17.210 Nicotine dependence, cigarettes, uncomplicated; E03.9 Hypothyroidism, unspecified; Z88.1 Allergy status to other antibiotic agents; Z88.6 Allergy status to analgesic agent
CPT/HCPCS: 36415; 74022; 74177; 76830; 80053; 81001; 81025; 83690; 85025; 87210; 87491; 87591; 93976; 96361; 96374; 96375; 99291; J0694; J1170; J1885; J2405; J2550; J3490; J7030; J7060; J7120

== ENCOUNTER 2019-09-20 13:29 | Observation (INO) | payer SELFPAY ==
--- NOTE | 2019-09-20 14:16 | ER Document Report ---
ED Medical Screen (RME) - General Chief Complaint: Abdominal Pain Stated Complaint: ABDOMINAL PAIN Time Seen by Provider: 09/20/19 14:11 Mode of Arrival: Wheelchair Information source: Patient Notes: 39-year-old female presents to ED for complaint of generalized abdominal pain that radiates up to chest and back to the left shoulder often or for 4 days worse starting yesterday. She states she has a history of thyroid problems diverticulosis and diverticulitis. She states she has been hospitalized for for a abscess to the right tube and ovary last year. The patient states she smokes a pack a day states she occasionally drinks and and uses marijuana. She states she is not having any nausea or vomiting today. I have greeted and performed a rapid initial assessment of this patient. A comprehensive ED assessment and evaluation of the patient, analysis of test results and completion of medical decision making process will be conducted by an additional ED providers. TRAVEL OUTSIDE OF THE [place] IN LAST 30 DAYS: No - Related Data Allergies/Adverse Reactions: acetaminophen [From Vicodin] Allergy (Verified 03/17/16 00:00) ciprofloxacin [From Cipro] Allergy (Verified 03/17/16 00:00) ciprofloxacin HCl [From Cipro] Allergy (Verified 03/17/16 00:00) hydrocodone bitartrate [From Vicodin] Allergy (Verified 03/17/16 00:00) Penicillins Allergy (Verified 08/29/18 03:26) Past Medical History Endocrine Medical History: Reports: Hx Hypothyroidism Renal/ Medical History: Denies: Hx Peritoneal Dialysis Past Surgical History: Reports: Hx Gynecologic Surgery - D&C, Other - Elective x 3 - Immunizations Hx Diphtheria, Pertussis, Tetanus Vaccination: Yes Physical Exam - Vital signs Vitals: Temp Pulse Resp BP Pulse Ox 99.2 F 112 H 18 135/94 H 98 09/20/19 13:54 09/20/19 13:54 09/20/19 13:54 09/20/19 13:54 09/20/19 13:54 Course - Vital Signs Vital signs: Temp Pulse Resp BP Pulse Ox 99.2 F 112 H 18 135/94 H 98 09/20/19 13:54 09/20/19 13:54 09/20/19 13:54 09/20/19 13:54 09/20/19 13:54
--- NOTE | 2019-09-20 16:09 | RADIOLOGY REPORT (SQ) ---
EXAM DESCRIPTION: U/S NON-OB PELVIS TV W/O DOP COMPLETED DATE/TIME: 09/20/2019 3:49 pm REASON FOR STUDY: Pelvic/abdominal pain history of right ovarian inf COMPARISON: 08/28/2018 TECHNIQUE: Dynamic and static grayscale images acquired of the pelvis via transvaginal approach and recorded on PACS. Additional selected color Doppler and spectral images recorded. LIMITATIONS: None. FINDINGS: UTERUS: Contour normal. No mass. ENDOMETRIAL STRIPE: No focal or generalized thickening. No masses. CERVIX: Small nabothian cysts. RIGHT OVARY AND DOPPLER: Right ovary not identified. Tubular structure measuring about 8.5 x 3 x 8 c m. LEFT OVARY AND DOPPLER: Ovary not visualized. FREE FLUID: Moderate. OTHER: No other significant finding. IMPRESSION: Suspect pyosalpinx or hydrosalpinx on the right. TECHNICAL DOCUMENTATION: JOB ID: [id number] [employer]- All Rights Reserved Rev-03/31 Reading location - IP/workstation name: [email or web address]
--- NOTE | 2019-09-20 16:35 | ER Document Report ---
ED GI/ - General Chief Complaint: Abdominal Pain Stated Complaint: ABDOMINAL PAIN Time Seen by Provider: 09/20/19 14:11 Primary Care Provider: UNA HUERTAS DO [Primary Care Provider] - Follow up as needed Mode of Arrival: Wheelchair TRAVEL OUTSIDE OF THE [place] IN LAST 30 DAYS: No - HPI Notes: 09/20/19 39-year-old female to the emergency department with complaints of pelvic pain that has been ongoing for several weeks but acutely worse in the past several days. She states that she awoke this morning and had severe right pelvic pain. She states that she had an episode like this about 1 year ago and was admitted to the hospital for IV antibiotics for an infected tube and ovary. She states she has not had any vaginal discharge. She states that she does not have concern for an STD. She denies fevers or chills. She states that she has pain whenever she urinates but denies any urinary frequency. She denies any chest pain, shortness of breath, nausea, vomiting. She states that she saw Dr. Ibarra in the past for this problem. - Related Data Allergies/Adverse Reactions: acetaminophen [From Vicodin] Allergy (Verified 03/17/16 00:00) ciprofloxacin [From Cipro] Allergy (Verified 03/17/16 00:00) ciprofloxacin HCl [From Cipro] Allergy (Verified 03/17/16 00:00) hydrocodone bitartrate [From Vicodin] Allergy (Verified 03/17/16 00:00) Penicillins Allergy (Verified 08/29/18 03:26) Past Medical History - General Information source: Patient - Social History Smoking Status: Current Every Day Smoker Frequency of alcohol use: Social Family History: Reviewed & Not Pertinent Patient has suicidal ideation: No Patient has homicidal ideation: No Endocrine Medical History: Reports: Hx Hypothyroidism Renal/ Medical History: Denies: Hx Peritoneal Dialysis Past Surgical History: Reports: Hx Gynecologic Surgery - D&C, Other - Elective x 3 - Immunizations Hx Diphtheria, Pertussis, Tetanus Vaccination: Yes Review of Systems - Review of Systems Constitutional: denies: Chills, Fever EENT: No symptoms reported Cardiovascular: denies: Chest pain, Dyspnea, Syncope, Dizziness, Lightheaded Respiratory: denies: Cough, Short of breath Gastrointestinal: Abdominal pain. denies: Diarrhea, Nausea, Vomiting Genitourinary: Dysuria. denies: Frequency, Flank pain, Hematuria Female Genitourinary: See HPI. denies: , Vaginal discharge Musculoskeletal: No symptoms reported Skin: No symptoms reported Neurological/Psychological: No symptoms reported -: Yes All other systems reviewed and negative Physical Exam - Vital signs Vitals: Temp Pulse Resp BP Pulse Ox 99.2 F 112 H 18 135/94 H 98 09/20/19 13:54 09/20/19 13:54 09/20/19 13:54 09/20/19 13:54 09/20/19 13:54 Interpretation: Tachycardic - General General appearance: Appears well, Alert - HEENT Head: Normocephalic, Atraumatic Eyes: Normal Pupils: PERRL - Respiratory Respiratory status: No respiratory distress Chest status: Nontender Breath sounds: Normal Chest palpation: Normal - Cardiovascular Rhythm: Regular Heart sounds: Normal auscultation Murmur: No - Abdominal Inspection: Obese Distension: No distension Bowel sounds: Normal Tenderness: Tender - there is TTP over the right lower pelvic abdomen as well as the suprapubic abdomen. no guarding or rebound. no CVA tenderness Organomegaly: No organomegaly - Genitourinary External exam: Normal Speculum exam: Vaginal discharge - yellow thin vaginal discharge present Vaginal bleeding: None Bimanuel exam: Cervical motion tender, Adnexal tenderness - there is TTP over the cervix as well as the right adnexal region. + chandelier sign - Back Back: Normal. No: CVA tenderness - Neurological Neuro grossly intact: Yes Cognition: Normal Orientation: AAOx4 Sierra Coma Scale Eye Opening: Spontaneous Sierra Coma Scale Verbal: Oriented Sierra Coma Scale Motor: Obeys Commands [place] Coma Scale Total: 15 Speech: Normal Cranial nerves: Normal Cerebellar coordination: Normal Motor strength normal: LUE, RUE, LLE, RLE Additional motor exam normals: Equal ross furnace operator Sensory: Normal - Psychological Associated symptoms: Normal affect, Normal mood - Skin Skin Temperature: Warm Skin Moisture: Dry Skin Color: Normal Course - Re-evaluation Re-evalutation: 09/20/19 18:30 Transvaginal US 09/20/19 14:16 IMPRESSION: Suspect pyosalpinx or hydrosalpinx on the right. Noted elevated WBC, US result concerning for PID/possible TOA. Spoke with Dr. Helms about the patient and he agrees with the plan for admission. Agrees with Abx ordered for patient. Aware that GC/chlam results pending. Updated patient about the plan and she agrees. Updated my ER attending, Dr. Stanford about treatment plan and he also agrees. 09/20/19 18:35 Impression: PID possible early TOA seen on US. Will admit to the hospital for IV Abx. Dr. Helms will admit. - Vital Signs Vital signs: Temp Pulse Resp BP Pulse Ox 99.2 F 112 H 18 135/94 H 98 09/20/19 13:54 09/20/19 13:54 09/20/19 13:54 09/20/19 13:54 09/20/19 13:54 - Laboratory Result Diagrams: 09/20/19 16:50 09/20/19 16:50 Laboratory results interpreted by me: 09/20/19 09/20/19 15:47 16:50 WBC 18.1 H Lymph % (Auto) 12.2 L Absolute Neuts (auto) 14.3 H Absolute Monos (auto) 1.5 H Seg Neutrophils % 78.9 H Urine Protein 100 H Urine Blood MODERATE H Urine Nitrite (Reflex) POSITIVE H Leukocyte Esterase Rfl MODERATE H - Diagnostic Test Radiology reviewed: Image reviewed, Reports reviewed Discharge - Discharge Clinical Impression: PID (acute pelvic inflammatory disease), Pyosalpinx Condition: Stable Disposition: ADMITTED INPATIENT Admitting Provider: Dr. Helms Unit Admitted: Labor and Delivery Referrals: UNA HUERTAS DO [Primary Care Provider] - Follow up as needed
[2019-09-20 17:14] LABS: ABSOLUTE EOSINOPHILS # (AUTO) 0.1 10^3/uL (0.0-0.6); ABSOLUTE LYMPHOCYTES (AUTO) 2.2 10^3/uL (0.5-4.7); ABSOLUTE MONOCYTES (AUTO) 1.5 10^3/uL (0.1-1.4); ABSOLUTE NEUT (AUTO) 14.3 10^3/uL (1.7-8.2); BASOPHILS % (AUTO) 0.2 % (0-2); EOSINOPHILS % (AUTO) 0.3 % (0-6); HEMATOCRIT 37.4 % (36.0-47.0); LYMPHOCYTES % (AUTO) 12.2 % (13-45); MEAN CORPUSCULAR HEMOGLOBIN 32.5 pg (27.0-33.4); MEAN CORPUSCULAR HGB CONC 34.7 g/dL (32.0-36.0); MEAN CORPUSCULAR VOLUME 94 fl (80-97); MONOCYTES % (AUTO) 8.4 % (3-13); PLATELET COUNT 431 10^3/uL (150-450); RED CELL DISTRIBUTION WIDTH 13.3 % (11.5-14.0); SEGMENTED NEUTROPHILS % (AUTO) 78.9 % (42-78); TOTAL CELLS COUNTED % (AUTO) 100 %; WHITE BLOOD COUNT 18.1 10^3/uL (4.0-10.5)
[2019-09-20 17:24] LABS: AMORPHOUS SEDIMENT,URINE 1+ /HPF; APPEARANCE,URINE TURBID; BILIRUBIN,URINE NEGATIVE (NEGATIVE); COLOR,URINE YELLOW; GLUCOSE, URINE NEGATIVE (NEGATIVE); KETONES,URINE NEGATIVE (NEGATIVE); PROTEIN,URINE 100 mg/dL (NEGATIVE); URINE SPECIFIC GRAVITY 1.027; UROBILINOGEN,URINE NEGATIVE mg/dL (<2.0)
[2019-09-20 17:28] LABS: ALBUMIN 3.8 g/dL (3.5-5.0); ALKALINE PHOSPHATASE 68 U/L (38-126); ANION GAP 9 (5-19); ASPARTATE AMINO TRANSFERASE 16 U/L (14-36); BILIRUBIN,DIRECT 0.1 mg/dL (0.0-0.4); BILIRUBIN,TOTAL 1.1 mg/dL (0.2-1.3); BLOOD UREA NITROGEN 9 mg/dL (7-20); CALCIUM 8.9 mg/dL (8.4-10.2); CARBON DIOXIDE 25 mmol/L (22-30); CHLORIDE 103 mmol/L (98-107); GLUCOSE 94 mg/dL (75-110); TOTAL PROTEIN 6.7 g/dL (6.3-8.2)
[2019-09-20] MEDS ORDERED: DOXYCYCLINE HYCLATE INJ 100 MG VIAL IV ONE ×2 (17:41→20:30)
[2019-09-20] MEDS ORDERED: CEFOXITIN INJ 2 GM VIAL IV ONE (17:43)
[2019-09-20] MEDS ORDERED: MORPHINE SULFATE 10 MG/ML INJ IV ONE ×2 (17:44→19:35)
[2019-09-20] MEDS ORDERED: ONDANSETRON HCL INJ/PF 4 MG/2 ML SDV IV ONE (17:44)
[2019-09-20] MEDS ORDERED: NORMAL SALINE 1000 ML 1,000 ML IV ONE (18:15)
[2019-09-20] MEDS ORDERED: NORMAL SALINE 1000 ML 1,500 ML IV ONE (18:44)
[2019-09-20 19:14] LABS: BACTERIA (WET MOUNT) 3+ BACTERIA SEEN; T.VAGINALIS (WET MOUNT) NO TRICHOMONAS SEEN; WBCS (WET MOUNT) 1+ WBCS SEEN; YEAST (WET MOUNT) NO YEAST SEEN
[2019-09-20 19:15] LABS: EPITHELIALS (WET MOUNT) 3+ EPITHELIALS SEEN
[2019-09-20 20:04] VITALS: BP 136/80
[2019-09-20 21:17] LABS: CHLAM PCR NOT DETECTED (NOT DETECT)
--- NOTE | 2019-09-28 11:37 | PDOC H&P ---
History of Present Illness Admission Date/PCP: 09/20/19 18:39 UNA MILIAN DO History of Present Illness: COLEMAN HENRIQUEZ is a 39 year old female admitted from ER with elevateed WBC amd possible tubo-ovarian abcess Past Medical History Endocrine Medical History: Reports: Hypothyroidism Past Surgical History Past Surgical History: Reports: Other - Elective x 3 Social History Smoking Status: Current Every Day Smoker Frequency of Alcohol Use: Social Hx Recreational Drug Use: Yes - 2 days ago Drugs: Marijuana Hx Prescription Drug Abuse: No - Advance Directive Resuscitation Status: Full Code Family History Family History: Reviewed & Not Pertinent Parental Family History Reviewed: No Children Family History Reviewed: No Sibling(s) Family History Reviewed.: No Medication/Allergy Home Medications: Doxycycline Hyclate 100 mg PO BID 09/26/19 Ibuprofen [Motrin 800 mg Tablet] 800 mg PO Q8 09/26/19 Lisinopril/Hydrochlorothiazide [Lisinopril-Hctz 20-12.5 mg Tab] 20 each PO DAILY 09/26/19 Morphine Sulfate [Morphine Ir 15 Mg Tablet] 15 mg PO Q6 PRN 09/26/19 Allergies/Adverse Reactions: acetaminophen [From Vicodin] Allergy (Verified 03/17/16 00:00) ciprofloxacin [From Cipro] Allergy (Verified 03/17/16 00:00) ciprofloxacin HCl [From Cipro] Allergy (Verified 03/17/16 00:00) hydrocodone bitartrate [From Vicodin] Allergy (Verified 03/17/16 00:00) Penicillins Allergy (Verified 08/29/18 03:26) Review of Systems Review of Systems: abdominal pain Physical Exam - Physical Exam Vital Signs: Temp Pulse Resp BP Pulse Ox 98.6 F 100 19 136/80 H 99 09/20/19 19:53 09/20/19 19:53 09/20/19 19:53 09/20/19 19:53 09/20/19 19:53 General appearance: PRESENT: no acute distress Respiratory exam: PRESENT: clear to auscultation iggy Cardiovascular exam: PRESENT: RRR GI/Abdominal exam: PRESENT: tenderness Result Laboratory Results: 09/20/19 16:50 09/20/19 16:50 Impressions: Transvaginal US 09/20/19 14:16 IMPRESSION: Suspect pyosalpinx or hydrosalpinx on the right. Assessment & Plan - Diagnosis (1) Abdominal pain Qualifiers: Abdominal location: generalized Qualified Code(s): R10.84 - Generalized abd ominal pain Is this a current diagnosis for this admission?: Yes (2) TOA (tubo-ovarian abscess) Is this a current diagnosis for this admission?: Yes Plan: IV antibiotics possible laparotomy (3) Uncontrolled hypertension Is this a current diagnosis for this admission?: Yes - Time Critical Time spent with patient: Less than 15 minutes
--- NOTE | 2019-09-28 11:38 | Left Against Medical Advice ---
Against Medical Advice Admission Date/Time: 09/20/19 18:39 Primary Care Provider: UNA MILIAN DO Date of Patient Emigration: 09/20/19 - Diagnosis: (1) Abdominal pain Is this a current diagnosis for this admission?: Yes (2) TOA (tubo-ovarian abscess) Is this a current diagnosis for this admission?: Yes (3) Uncontrolled hypertension Is this a current diagnosis for this admission?: Yes - Summary: Summary: Please see Admission and Progress Notes as well. COLEMAN Parrish FLORENCE is a 39 F, who LEFT AGAINST MEDICAL ADVICE. pt would mot comply with plan of management The Patient was admitted on 09/20/19 18:39.
== END 2019-09-20 21:41 | disposition left against medical advice (07) ==
LOC: ER 13:29 → INTOOBSV 18:39 → EH 18:39 → 2N 21:00
PROVIDERS: ADMIT Obstetrics & Gynecology Gynecology; ATTEND Obstetrics & Gynecology Gynecology
DX: R10.84 Generalized abdominal pain (principal); N70.93 Salpingitis and oophoritis, unspecified; I10 Essential (primary) hypertension; F17.210 Nicotine dependence, cigarettes, uncomplicated; R30.0 Dysuria; F12.90 Cannabis use, unspecified, uncomplicated; Z91.19 Patient's noncompliance with other medical treatment and regimen; Z87.898 Personal history of other specified conditions; Z87.19 Personal history of other diseases of the digestive system
CPT/HCPCS: 99285; 96374; 96375; 36415; 87086; 87210; 84703; 85025; 87088; 80053; 81001; 87186; 87491; 87591; 76830; G0378 ×2; J3490; J2270; J2405; J7030; J0694

== ENCOUNTER 2019-09-22 23:11 | Inpatient (IN) | payer SELFPAY ==
[2019-09-22] MEDS ORDERED: NORMAL SALINE 1000 ML 1,000 ML IV ONE (23:29)
[2019-09-22] MEDS ORDERED: ONDANSETRON HCL INJ/PF 4 MG/2 ML SDV IV ONE (23:29)
[2019-09-22] MEDS ORDERED: MORPHINE SULFATE 10 MG/ML INJ IV ONE (23:29)
--- NOTE | 2019-09-22 23:32 | ER Document Report ---
ED GI/ - General Stated Complaint: ABDOMINAL PAIN Time Seen by Provider: 09/22/19 23:21 Notes: Patient is a 39-year-old female that comes emergency department by EMS for chief complaint of lower abdominal pain worse on the right, nausea, flank pain. She states that she was seen here 2 days ago, diagnosed with a pelvic infection, however she states that after initial treatment she left decided to leave and go home. Mother at bedside confirm she left AGAINST MEDICAL ADVICE. She does states she is sexually active, she states she has had a D&C and is treated for her thyroid, she denies medical history otherwise other than PID once before with an IUD, IUD has been removed. She states she has not been taking antibiotic's at home after she left. She states she has felt fevers but she has not measured a fever. TRAVEL OUTSIDE OF THE [place] IN LAST 30 DAYS: No - Related Data Allergies/Adverse Reactions: acetaminophen [From Vicodin] Allergy (Verified 03/17/16 00:00) ciprofloxacin [From Cipro] Allergy (Verified 03/17/16 00:00) ciprofloxacin HCl [From Cipro] Allergy (Verified 03/17/16 00:00) hydrocodone bitartrate [From Vicodin] Allergy (Verified 03/17/16 00:00) Penicillins Allergy (Verified 08/29/18 03:26) Past Medical History - General Information source: Patient - Social History Smoking Status: Never Smoker Frequency of alcohol use: None Drug Abuse: None Lives with: Family Family History: Reviewed & Not Pertinent Endocrine Medical History: Reports: Hx Hypothyroidism Renal/ Medical History: Denies: Hx Peritoneal Dialysis Infectious Medical History: Reports: Other - PID Past Surgical History: Reports: Hx Gynecologic Surgery - D&C, Other - Elective x 3 - Immunizations Hx Diphtheria, Pertussis, Tetanus Vaccination: Yes Review of Systems - Review of Systems Constitutional: See HPI EENT: No symptoms reported Cardiovascular: No symptoms reported Respiratory: No symptoms reported Gastrointestinal: See HPI Genitourinary: See HPI Female Genitourinary: See HPI Musculoskeletal: No symptoms reported Skin: No symptoms reported Hematologic/Lymphatic: No symptoms reported Neurological/Psychological: No symptoms reported Physical Exam - Vital signs Vitals: Temp Pulse Resp BP 98.1 F 88 22 H 136/91 H 09/22/19 23:28 09/22/19 23:28 09/22/19 23:28 09/22/19 23:28 - Notes Notes: GENERAL: Alert but somewhat ill-appearing, mildly diaphoretic HEAD: Normocephalic, atraumatic. EYES: Pupils equal, round, and reactive to light. Extraocular movements intact. ENT: Oral mucosa moist, tongue midline. Oropharynx unremarkable. NECK: Full range of motion. Supple. Trachea midline. LUNGS: Clear to auscultation bilaterally, no wheezes, rales, or rhonchi. No respiratory distress. HEART: Borderline tachycardia, normal rhythm, no murmur ABDOMEN: Generalized tenderness, much more tender in the general lower abdomen although this is equal on both sides it seems. No rigidity. Bowel sounds present. GENITOURINARY: Deferred EXTREMITIES: Moves all 4 extremities spontaneously. No edema, normal radial and dorsalis pedis pulses bilaterally. BACK: no cervical, thoracic, lumbar midline tenderness. No saddle anesthesia, normal distal neurovascular exam. Moves all extremities in full range of motion. NEUROLOGICAL: Alert and oriented x3. Normal speech. Cranial nerves II through XII grossly intact. PSYCH: Agitated SKIN: Mildly diaphoretic Course - Re-evaluation Re-evalutation: 09/22/19 23:39 Patient is somewhat ill-appearing. She is mildly diaphoretic, restless. She is borderline tachycardic but not hypotensive. She is afebrile. Septic work-up initiated. She is tender of the abdomen generally and much more tender in the lower abdomen. There is no rigidity to the abdomen however. Patient is slightly difficult with history, mom gives most of the history. No CBC shows look cytosis and elevation of neutrophils but no bandemia. Leukocytosis is actually decreased from the past 2 days. Chemistry unremarkabl e. Lactic acid negative. Urinalysis unremarkable. I did start patient on antibiotics because of reported history. Blood cultures pending. Because of patient's tenderness and worsening symptoms including increased pain and vomiting I discussed with Dr. Renae, CAT scan will be performed and I will contact [facility]. CAT scan arms, I spoke with the radiologist Dr. Torres, he states that there is purulent appearance of the right fallopian tube, worsening appearance of the right ovary area, possible peritonitis developing, appearance of developing small bowel obstruction. Patient has been kept n.p.o. I discussed with Dr. Herman, she requests I also speak with general surgery. I discussed with Dr. Morgan, he states he will be happy to consult on the patient and even assist intraoperatively with the patient but he is uncomfortable admitting PID patient at this time. I spoke with Dr. Herman again, she accepts patient to her service and states she will evaluate the patient upstairs. - Vital Signs Vital signs: Temp Pulse Resp BP Pulse Ox 99.4 F 88 21 H 119/89 H 98 09/23/19 00:02 09/22/19 23:28 09/23/19 02:01 09/23/19 02:01 09/23/19 02:01 - Laboratory Result Diagrams: 09/23/19 00:35 09/23/19 00:35 Laboratory results interpreted by me: 09/23/19 09/23/19 09/23/19 00:35 00:35 01:23 WBC 11.3 H Hct 35.3 L Seg Neuts % (Manual) 88 H Lymphocytes % (Manual) 8 L Abs Neuts (Manual) 9.9 H Sodium 136.4 L Glucose 128 H Albumin 3.4 L Urine Ketones 20 H Urine Blood SMALL H Urine Ascorbic Acid 20 H Discharge - Discharge Clinical Impression: Pyosalpinx, Peritonitis Abdominal pain Qualifiers: Abdominal location: generalized Qualified Code(s): R10.84 - Generalized abdominal pain Vomiting Qualifiers: Vomiting type: unspecified Vomiting Intractability: non-intractable Nausea presence: without nausea Qualified Code(s): R11.11 - Vomiting without nausea Condition: Stable Disposition: ADMITTED INPATIENT Admitting Provider: [facility] Unit Admitted: Labor and Delivery
[2019-09-22] MEDS ORDERED: CEFOXITIN INJ 2 GM VIAL IV ONE (23:38)
[2019-09-22] MEDS ORDERED: DOXYCYCLINE HYCLATE INJ 100 MG VIAL IV ONE (23:39)
[2019-09-23] MEDS ORDERED: FENTANYL CITRATE INJ/PF 100 MCG/2 ML AMPUL IV ONE (00:06)
[2019-09-23 00:47] LABS: VENOUS BLOOD BASE EXCESS 1.2 mmol/L; VENOUS BLOOD HCO3 25.6 mmol/L (20-32); VENOUS BLOOD PH 7.42 (7.30-7.42)
[2019-09-23 00:50] LABS: HEMATOCRIT 35.3 % (36.0-47.0); MEAN CORPUSCULAR VOLUME 94 fl (80-97); PLATELET COUNT 412 10^3/uL (150-450); RED BLOOD COUNT 3.75 10^6/uL (3.72-5.28); RED CELL DISTRIBUTION WIDTH 13.3 % (11.5-14.0); WHITE BLOOD COUNT 11.3 10^3/uL (4.0-10.5)
[2019-09-23 01:05] LABS: ALBUMIN 3.4 g/dL (3.5-5.0); ALKALINE PHOSPHATASE 74 U/L (38-126); ANION GAP 8 (5-19); ASPARTATE AMINO TRANSFERASE 16 U/L (14-36); BILIRUBIN,DIRECT 0.2 mg/dL (0.0-0.4); BILIRUBIN,TOTAL 0.7 mg/dL (0.2-1.3); BLOOD UREA NITROGEN 9 mg/dL (7-20); CALCIUM 8.4 mg/dL (8.4-10.2); CARBON DIOXIDE 25 mmol/L (22-30); CHLORIDE 103 mmol/L (98-107); GLUCOSE 128 mg/dL (75-110); POTASSIUM 3.7 mmol/L (3.6-5.0); TOTAL PROTEIN 6.4 g/dL (6.3-8.2)
[2019-09-23 01:09] LABS: ABSOLUTE LYMPHOCYTES# (MANUAL) 0.9 10^3/uL (0.5-4.7); ABSOLUTE MONOCYTES # (MANUAL) 0.5 10^3/uL (0.1-1.4); BASOPHILS % (MANUAL) 0 % (0-2); EOSINOPHILS % (MANUAL) 0 % (0-6); LYMPHOCYTES % (MANUAL) 8 % (13-45); MONOCYTES % (MANUAL) 4 % (3-13); PLATELET COMMENT ADEQUATE; RBC MORPHOLOGY COMMENT NORMO-CYTIC/CHROMIC; SEGMENTED NEUTROPHILS % (MAN) 88 % (42-78); TOTAL CELLS COUNTED 100
[2019-09-23 01:38] LABS: APPEARANCE,URINE CLEAR; BILIRUBIN,URINE NEGATIVE (NEGATIVE); COLOR,URINE YELLOW; GLUCOSE, URINE NEGATIVE (NEGATIVE); KETONES,URINE 20 mg/dL (NEGATIVE); LEUKOCYTE ESTERASE,URINE NEGATIVE (NEGATIVE); NITRITE,URINE NEGATIVE (NEGATIVE); PROTEIN,URINE NEGATIVE (NEGATIVE); URINE SPECIFIC GRAVITY 1.008; UROBILINOGEN,URINE NEGATIVE mg/dL (<2.0)
[2019-09-23] MEDS ORDERED: HYDROMORPHONE HCL INJ/PF 2 MG/ML AMPULE IV ONE ×2 (03:04→05:12)
[2019-09-23] MEDS ORDERED: METRONIDAZOLE 500 MG/NS RTU 500 MG/100 ML RTUPB IV ONE (03:07)
--- NOTE | 2019-09-23 03:07 | RADIOLOGY REPORT (SQ) ---
CT abdomen and pelvis with contrast on 09/23/2019 at 2:17 AM CLINICAL INDICATION: Right-sided abdominal pain, vomiting TECHNIQUE: Multiple axial images are obtained throughout the abdomen and pelvis following the administration of IV contrast, 100 mL of Omnipaque 350 contrast was administered intravenously without complication. This exam was performed according to our departmental dose-optimization program, which includes automated exposure control, adjustment of the mA and/or kV according to patient size and/or use of iterative reconstruction technique. Total DLP is 1396.98 mGy*cm. COMPARISON: 08/29/2018 and 09/21/2019 FINDINGS: Abdomen: There is minimal bibasilar atelectasis. There is a stable tiny right hepatic cyst. The solid abdominal organs are otherwise unremarkable. There is no abdominal adenopathy. Small amount of free fluid is noted in the abdomen. There is no free air. Pelvis: There is tubular fluid-filled peripherally enhancing structure in the right adnexa that appears to be associated with the right ovary similar to the finding on the prior examinations although on the prior exam in 2018 this was in the right posterior pelvis and this is now migrated to the right anterior pelvis. This is suggestive of pyosalpinx again. The associated inflammatory response in the right lower quadrant is producing an apparent small bowel obstruction with dilated fluid-filled loops of small bowel proximal to this and decompressed distal small bowel. Small amount of free fluid is noted posteriorly in the pelvis with some enhancing peritoneum suggesting developing peritonitis. The pelvic portion of the GI tract including the appendix is otherwise unremarkable. Pelvic organs otherwise appear unremarkable by CT. There is no pelvic adenopathy. No bony abnormality is noted. IMPRESSION: Inflammatory process in the right adnexa with an appearance over multiple prior exams most suggestive of pyosalpinx. This is now causing and at least partial small bowel obstruction. Recommend surgical consultation. There is also some enhancement of the peritoneum around free fluid in the pelvis raising a question of developing peritonitis. This case was discussed by myself by phone with ROCKY Agee in the emergency department taking care of the patient, on 09/23/2019 at 2:05 AM.
[2019-09-23] MEDS ORDERED: NORMAL SALINE 1000 ML 1,000 ML IV PRN (03:09)
[2019-09-23] MEDS ORDERED: PHARMACY COMMUNICATION ORDER MC NR (05:30)
--- NOTE | 2019-09-23 05:36 | PDOC H&P ---
History of Present Illness Admission Date/PCP: 09/23/19 04:12 UNA MILIAN DO Patient complains of: nausea and vomiting with worsening abdomnial pain History of Present Illness: COLEMAN HENRIQUEZ is a 39 year old female P3 who presented to the ER for se cond time in 2 days with increasing nausea/vomiting and abdominal pain. She left AMA two days ago with similar symptoms. The patient has a history of admission last year with PID. CT scan today shows a worsening pyleosalpinx with complex collection in the pelvis as well as a SBO with no transition point clearly identified. The patient indicates that she has vomited 3 times here in the ER today. She indicates that she did have stool and flatulance yesterday but does not recall any today. Past Medical History Endocrine Medical History: Reports: Hypothyroidism Past Surgical History Past Surgical History: Reports: Other - Elective x 3 Social History Lives with: Family Smoking Status: Never Smoker Frequency of Alcohol Use: Social Hx Recreational Drug Use: Yes - 2 days ago Drugs: Marijuana Hx Prescription Drug Abuse: No Family History Family History: Reviewed & Not Pertinent Parental Family History Reviewed: Yes Children Family History Reviewed: Yes Sibling(s) Family History Reviewed.: Yes Medication/Allergy Home Medications: Alprazolam [Xanax 0.25 mg Tablet] 0.25 mg PO DAILYP PRN 09/20/19 Alprazolam [Xanax 0.5 mg Tablet] 0.5 mg PO HSP PRN 09/20/19 Dextroamphetamine/Amphetamine [Adderall 20 mg Tablet] 20 mg PO DAILY@1500 09/20/19 Dextroamphetamine/Amphetamine [Adderall 30 mg Tablet] 30 mg PO QAM 09/20/19 Allergies/Adverse Reactions: acetaminophen [From Vicodin] Allergy (Verified 03/17/16 00:00) ciprofloxacin [From Cipro] Allergy (Verified 03/17/16 00:00) ciprofloxacin HCl [From Cipro] Allergy (Verified 03/17/16 00:00) hydrocodone bitartrate [From Vicodin] Allergy (Verified 03/17/16 00:00) Penicillins Allergy (Verified 08/29/18 03:26) Physical Exam - Physical Exam Vital Signs: Temp Pulse Resp BP Pulse Ox 99.4 F 88 16 159/134 H 100 09/23/19 04:01 09/22/19 23:28 09/23/19 05:01 09/23/19 05:00 09/23/19 05:01 Intake & Output 09/21/19 09/22/19 09/23/19 06:59 06:59 06:59 Intake Total 1100 Balance 1100 Weight 87.9 kg General appearance: PRESENT: no acute distress, cooperative, well-developed, well-nourished Head exam: PRESENT: atraumatic GI/Abdominal exam: PRESENT: diminished bowel sounds, soft - mild distention of the upper abdomen, Result Laboratory Results: 09/23/19 00:35 09/23/19 00:35 09/23/19 09/23/19 09/23/19 00:35 00:35 00:35 WBC 11.3 H RBC 3.75 Hgb 12.0 Hct 35.3 L MCV 94 MCH 32.0 MCHC 34.0 RDW 13.3 Plt Count 412 Seg Neutrophils % Not Reportable VBG pH VBG pCO2 VBG HCO3 VBG Base Excess Sodium 136.4 L Potassium 3.7 Chloride 103 Carbon Dioxide 25 Anion Gap 8 BUN 9 Creatinine 0.64 Est GFR ( Amer) > 60 Glucose 128 H Lactic Acid Calcium 8.4 Total Bilirubin 0.7 AST 16 Alkaline Phosphatase 74 Total Protein 6.4 Albumin 3.4 L Serum HCG, Qual NEGATIVE Urine Color Urine Appearance Urine pH Ur Specific [place] Urine Protein Urine Glucose (UA) Urine Ketones Urine Blood Urine Nitrite Ur Leukocyte Esterase Urine WBC (Auto) Urine RBC (Auto) 09/23/19 09/23/19 09/23/19 00:35 00:35 01:23 WBC RBC Hgb Hct MCV MCH MCHC RDW Plt Count Seg Neutrophils % VBG pH 7.42 VBG pCO2 40.0 VBG HCO3 25.6 VBG Base Excess 1.2 Sodium Potassium Chloride Carbon Dioxide Anion Gap BUN Creatinine Est GFR ( Amer) Glucose Lactic Acid 0.7 Calcium Total Bilirubin AST Alkaline Phosphatase Total Protein Albumin Serum HCG, Qual Urine Color YELLOW Urine Appearance CLEAR Urine pH 8.0 Ur Specific [place] 1.008 Urine Protein NEGATIVE Urine Glucose (UA) NEGATIVE Urine Ketones 20 H Urine Blood SMALL H Urine Nitrite NEGATIVE Ur Leukocyte Esterase NEGATIVE Urine WBC (Auto) 2 Urine RBC (Auto) 30 Impressions: Abdomen/Pelvis CT 09/23/19 01:44 IMPRESSION: Inflammatory process in the right adnexa with an appearance over multiple prior exams most suggestive of pyosalpinx. This is now causing and at least partial small bowel obstruction. Recommend surgical consultation. There is also some enhancement of the peritoneum around free fluid in the pelvis raising a question of developing peritonitis. This case was discussed by myself by phone with ROCKY Agee in the emergency department taking care of the patient, on 09/23/2019 at 2:05 AM. Assessment & Plan - Diagnosis (1) Abdominal pain Qualifiers: Abdominal location: generalized Qualified Code(s): R10.84 - Generalized abdominal pain Is this a current diagnosis for this admission?: Yes (2) Peritonitis Is this a current diagnosis for this admission?: Yes (3) Pyosalpinx Is this a current diagnosis for this admission?: Yes (4) Vomiting Qualifiers: Vomiting type: unspecified Vomiting Intractability: non-intractable Nausea presence: without nausea Qualified Code(s): R11.11 - Vomiting without nausea (5) PID (acute pelvic inflammatory disease) Is this a current diagnosis for this admission?: Yes (6) TOA (tubo-ovarian abscess) Is this a current diagnosis for this admission?: Yes (7) Tobacco abuse Is this a current diagnosis for this admission?: Yes - Time Time Spent: 30 to 50 Minutes Critical Time spent with patient: 15-24 minutes Medications reviewed and adjusted accordingly: Yes Anticipated discharge: Home Within: within 72 hours - Inpatient Certification Based on my medical assessment, after consideration of the patient's comorbidities, presenting symptoms, or acuity I expect that the services needed warrant INPATIENT care.: Yes I certify that my determination is in accordance with my understanding of Medicare's requirements for reasonable and necessary INPATIENT services [42 CFR 412.3e].: Yes Medical Necessity: Need For IV Fluids, Need for Pain Control, Need for IV Antibiotics, Risk of Complication if Not Cared For in Hospital - Plan Summary Plan Summary: Admit for Antibiotics for PID. NPO status. Consulted with Dr. Morgan from [facility] who recommends NGT. Plan to treat to cool down infection and reassess in 12-24 hours as to whether or not surgical intervention is needed on this visit. If patient improves then can consider following patient as outpatient and schedule salpingectomy later. D/W patient and counseled that bert gical need is evident but want to schedule when infection is at decreasing risks for becoming septic. She voices understanding. NPO status reinforced to patient.
--- NOTE | 2019-09-23 06:47 | PDOC CONSULTATION ---
Consultation Consult Date: 09/23/19 Attending physician:: ANIBAL HAYES Provider Consulted: MEGAN MARTINES Consult reason:: sbo vs ileus History of Present Illness Admission Date/PCP: 09/23/19 04:12 UNA MILIAN DO History of Present Illness: COLEMAN HENRIQUEZ is a 39 year old female Patient is a 39-year-old female that comes emergency department by EMS for chief complaint of lower abdominal pain worse on the right, nausea, flank pain. She states that she was seen here 2 days ago, diagnosed with a pelvic infection, however she states that after initial treatment she left decided to leave and go home. Mother at bedside confirm she left AGAINST MEDICAL ADVICE. She does states she is sexually active, she states she has had a D&C and is treated for her thyroid, she denies medical history otherwise other than PID once before with an IUD, IUD has been removed. She states she has not been taking antibiotic's at home after she left. She states she has felt fevers but she has not measured a fever. she now has more nausea and abdominal distension Past Medical History Endocrine Medical History: Reports: Hypothyroidism Past Surgical History Past Surgical History: Reports: Other - Elective x 3 Social History Lives with: Family Smoking Status: Never Smoker Frequency of Alcohol Use: Social Hx Recreational Drug Use: Yes - 2 days ago Drugs: Marijuana Hx Prescription Drug Abuse: No Family History Family History: Reviewed & Not Pertinent Parental Family History Reviewed: No Children Family History Reviewed: NA Sibling(s) Family History Reviewed.: NA Medication/Allergy Home Medications: Alprazolam [Xanax 0.25 mg Tablet] 0.25 mg PO DAILYP PRN 09/20/19 Alprazolam [Xanax 0.5 mg Tablet] 0.5 mg PO HSP PRN 09/20/19 Dextroamphetamine/Amphetamine [Adderall 20 mg Tablet] 20 mg PO DAILY@1500 09/20/19 Dextroamphetamine/Amphetamine [Adderall 30 mg Tablet] 30 mg PO QAM 09/20/19 Allergies/Adverse Reactions: acetaminophen [From Vicodin] Allergy (Verified 03/17/16 00:00) ciprofloxacin [From Cipro] Allergy (Verified 03/17/16 00:00) ciprofloxacin HCl [From Cipro] Allergy (Verified 03/17/16 00:00) hydrocodone bitartrate [From Vicodin] Allergy (Verified 03/17/16 00:00) Penicillins Allergy (Verified 08/29/18 03:26) Review of Systems Constitutional: PRESENT: anorexia, chills Eyes: ABSENT: as per HPI, visual disturbances, other Ears: ABSENT: as per HPI, hearing changes, other Nose, Mouth, and Throat: ABSENT: as per HPI, headache(s), mouth pain, sore throat, vertigo, other Breasts: ABSENT: as per HPI, other Cardiovascular: ABSENT: as per HPI, chest pain, dyspnea on exertion, edema, orthropnea, palpitations, other Respiratory: ABSENT: as per HPI, cough, dyspnea, hemoptysis, sputum, other Gastrointestinal: PRESENT: abdominal pain, bloating Genitourinary: ABSENT: as per HPI, difficulty urinating, dysuria, hematuria, nocturia, other Musculoskeletal: ABSENT: as per HPI, back pain, deformity, joint swelling, muscle weakness, other Integumentary: ABSENT: as per HPI, diaphoresis, erythema, lesions, pruritus, rash, wounds, other Neurological: ABSENT: as per HPI, abnormal gait, abnormal movements, abnormal speech, confusion, convulsions, dizziness, focal weakness, frequent falls, lack of coordination, memory loss, numbness, paresthesias, restless legs, syncope, tingling, tremor(s), vertigo, weakness, other Psychiatric: ABSENT: as per HPI, anxiety, depression, hallucinations, homidical ideation, suicidal ideation, other Endocrine: ABSENT: as per HPI, cold intolerance, flushing, heat intolerance, menstrual abnormalities, polydipsia, polyphagia, polyuria, other Hematologic/Lymphatic: ABSENT: as per HPI, easy bleeding, easy bruising, lymphadenopathy, other Allergic/Immunologic: ABSENT: as per HPI, seasonal rhinorrhea, other Physical Exam Vital Signs: Temp Pulse Resp BP Pulse Ox 99.4 F 88 18 116/78 99 09/23/19 04:01 09/22/19 23:28 09/23/19 05:56 09/23/19 05:56 09/23/19 05:56 Intake & Output 09/21/19 09/22/19 09/23/19 06:59 06:59 06:59 Intake Total 1100 Balance 1100 Weight 87.9 kg General appearance: PRESENT: mild distress Head exam: PRESENT: normocephalic Eye exam: PRESENT: EOMI Ear exam: PRESENT: normal external ear exam Mouth exam: PRESENT: moist Neck exam: PRESENT: full ROM Respiratory exam: PRESENT: clear to auscultation iggy Cardiovascular exam: PRESENT: RRR Pulses: PRESENT: normal carotid pulses, normal radial pulses GI/Abdominal exam: PRESENT: distended, tenderness - lower abd and right Rectal exam: PRESENT: deferred Gentrourinary exam: ABSENT: ecchymosis, erythema, lacerations, lesions, scrotal swelling, testicular tenderness, urethral discharge, indwelling catheter, other Extremities exam: ABSENT: calf tenderness, clubbing, full ROM, joint swelling, pedal edema, tenderness, +1 edema, +2 edema, other Musculoskeletal exam: ABSENT: ambulatory, deformity, dislocation, full ROM, norm al inspection, tenderness, other Neurological exam: PRESENT: alert, awake, oriented to person, oriented to place Psychiatric exam: PRESENT: appropriate affect Skin exam: PRESENT: dry Results Laboratory Results: 09/23/19 00:35 09/23/19 00:35 09/23/19 09/23/19 09/23/19 00:35 00:35 00:35 WBC 11.3 H RBC 3.75 Hgb 12.0 Hct 35.3 L MCV 94 MCH 32.0 MCHC 34.0 RDW 13.3 Plt Count 412 Seg Neutrophils % Not Reportable VBG pH VBG pCO2 VBG HCO3 VBG Base Excess Sodium 136.4 L Potassium 3.7 Chloride 103 Carbon Dioxide 25 Anion Gap 8 BUN 9 Creatinine 0.64 Est GFR ( Amer) > 60 Glucose 128 H Lactic Acid Calcium 8.4 Total Bilirubin 0.7 AST 16 Alkaline Phosphatase 74 Total Protein 6.4 Albumin 3.4 L Serum HCG, Qual NEGATIVE Urine Color Urine Appearance Urine pH Ur Specific [place] Urine Protein Urine Glucose (UA) Urine Ketones Urine Blood Urine Nitrite Ur Leukocyte Esterase Urine WBC (Auto) Urine RBC (Auto) 09/23/19 09/23/19 09/23/19 00:35 00:35 01:23 WBC RBC Hgb Hct MCV MCH MCHC RDW Plt Count Seg Neutrophils % VBG pH 7.42 VBG pCO2 40.0 VBG HCO3 25.6 VBG Base Excess 1.2 Sodium Potassium Chloride Carbon Dioxide Anion Gap BUN Creatinine Est GFR ( Amer) Glucose Lactic Acid 0.7 Calcium Total Bilirubin AST Alkaline Phosphatase Total Protein Albumin Serum HCG, Qual Urine Color YELLOW Urine Appearance CLEAR Urine pH 8.0 Ur Specific [place] 1.008 Urine Protein NEGATIVE Urine Glucose (UA) NEGATIVE Urine Ketones 20 H Urine Blood SMALL H Urine Nitrite NEGATIVE Ur Leukocyte Esterase NEGATIVE Urine WBC (Auto) 2 Urine RBC (Auto) 30 Impressions: Abdomen/Pelvis CT 09/23/19 01:44 IMPRESSION: Inflammatory process in the right adnexa with an appearance over multiple prior exams most suggestive of pyosalpinx. This is now causing and at least partial small bowel obstruction. Recommend surgical consultation. There is also some enhancement of the peritoneum around free fluid in the pelvis raising a question of developing peritonitis. This case was discussed by myself by phone with ROCKY Agee in the emergency department taking care of the patient, on 09/23/2019 at 2:05 AM. Assessment & Plan - Plan Summary Plan Summary: ileus vs sbo related to pid with pelvic abscess recommend ng tube for nausea/vomiting may develop into sbo due to rt lower quandrent abscess surgery will follow and can assist in operating room.
[2019-09-23] MEDS ORDERED: HYDRALAZINE HCL INJ/PF 20 MG/1 ML SDV ONE (06:56)
[2019-09-23] MEDS ORDERED: HYDRALAZINE HCL INJ/PF 20 MG/1 ML SDV IV ONE (07:15)
[2019-09-23] MEDS: HYDROMORPHONE HCL INJ/PF 2 MG/ML AMPULE IV PRN ×5 (07:36→23:54)
[2019-09-23] MEDS: METRONIDAZOLE 500 MG/NS RTU 500 MG/100 ML RTUPB IV SCH ×2 (09:23→17:39)
[2019-09-23] MEDS ORDERED: DOXYCYCLINE HYCLATE INJ 100 MG VIAL IV SCH (10:00)
[2019-09-23] MEDS ORDERED: DOCUSATE SODIUM 100 MG CAPSULE PO SCH (10:00)
--- NOTE | 2019-09-23 10:13 | RADIOLOGY REPORT (SQ) ---
EXAM DESCRIPTION: KUB/ABDOMEN (SINGLE VIEW) COMPLETED DATE/TIME: 09/23/2019 9:50 am REASON FOR STUDY: Check Placement of NG Tube COMPARISON: None. NUMBER OF VIEWS: One view. TECHNIQUE: Supine radiographic image of the abdomen acquired. LIMITATIONS: None. FINDINGS: BOWEL GAS PATTERN: Mild dilated small bowel loops. CALCIFICATIONS: No suspicious calcifications. SOFT TISSUES: No gross mass or suggestion of organomegaly. HARDWARE: Nasogastric tube tip in the antrum of the stomach. BONES: No acute fracture. No worrisome bone lesions. OTHER: No other significant finding. IMPRESSION: NG tube tip in the antrum of the stomach. TECHNICAL DOCUMENTATION: JOB ID: [id number] [employer]- All Rights Reserved Reading location - IP/workstation name: [email or web address]
[2019-09-23] MEDS: DOXYCYCLINE HYCLATE 100 MG in DEXTROSE 5%-WATER 250 ML IV SCH ×2 (10:33→22:45)
--- NOTE | 2019-09-23 11:14 | PDOC PROGRESS REPORT ---
Subjective Progress Note for:: 09/23/19 Subjective:: Still having pain and nausea. No vomiting. NGT is in place. Reports voiding with no incidence. NO BM today but is passing gas. Denies Vaginal discharge Reason For Visit: PYOSLALPINX,PERITONITIS Physical Exam - Physical Exam Vital Signs: Temp Pulse Resp BP Pulse Ox 98.1 F 91 20 158/113 H 98 09/23/19 07:46 09/23/19 09:37 09/23/19 09:37 09/23/19 09:37 09/23/19 09:37 Intake & Output 09/22/19 09/23/19 09/24/19 06:59 06:59 06:59 Intake Total 1100 100 Balance 1100 100 Weight 87.9 kg General appearance: PRESENT: no acute distress, cooperative, obese Respiratory exam: PRESENT: clear to auscultation iggy Cardiovascular exam: PRESENT: RRR, +S1, other GI/Abdominal exam: PRESENT: normal bowel sounds, soft - Tender to deep palpation in RLQ . NO rebound or guardin Result Laboratory Results: 09/23/19 00:35 09/23/19 00:35 09/23/19 09/23/19 09/23/19 00:35 00:35 00:35 WBC 11.3 H RBC 3.75 Hgb 12.0 Hct 35.3 L MCV 94 MCH 32.0 MCHC 34.0 RDW 13.3 Plt Count 412 Seg Neutrophils % Not Reportable VBG pH VBG pCO2 VBG HCO3 VBG Base Excess Sodium 136.4 L Potassium 3.7 Chloride 103 Carbon Dioxide 25 Anion Gap 8 BUN 9 Creatinine 0.64 Est GFR ( Amer) > 60 Glucose 128 H Lactic Acid Calcium 8.4 Total Bilirubin 0.7 AST 16 Alkaline Phosphatase 74 Total Protein 6.4 Albumin 3.4 L Serum HCG, Qual NEGATIVE Urine Color Urine Appearance Urine pH Ur Specific [place] Urine Protein Urine Glucose (UA) Urine Ketones Urine Blood Urine Nitrite Ur Leukocyte Esterase Urine WBC (Auto) Urine RBC (Auto) 09/23/19 09/23/19 09/23/19 00:35 00:35 01:23 WBC RBC Hgb Hct MCV MCH MCHC RDW Plt Count Seg Neutrophils % VBG pH 7.42 VBG pCO2 40.0 VBG HCO3 25.6 VBG Base Excess 1.2 Sodium Potassium Chloride Carbon Dioxide Anion Gap BUN Creatinine Est GFR ( Amer) Glucose Lactic Acid 0.7 Calcium Total Bilirubin AST Alkaline Phosphatase Total Protein Albumin Serum HCG, Qual Urine Color YELLOW Urine Appearance CLEAR Urine pH 8.0 Ur Specific [place] 1.008 Urine Protein NEGATIVE Urine Glucose (UA) NEGATIVE Urine Ketones 20 H Urine Blood SMALL H Urine Nitrite NEGATIVE Ur Leukocyte Esterase NEGATIVE Urine WBC (Auto) 2 Urine RBC (Auto) 30 Impressions: Abdomen/Pelvis CT 09/23/19 01:44 IMPRESSION: Inflammatory process in the right adnexa with an appearance over multiple prior exams most suggestive of pyosalpinx. This is now causing and at least partial small bowel obstruction. Recommend surgical consultation. There is also some enhancement of the peritoneum around free fluid in the pelvis raising a question of developing peritonitis. This case was discussed by myself by phone with ROCKY Agee in the emergency department taking care of the patient, on 09/23/2019 at 2:05 AM. KUB X-Ray 09/23/19 05:16 IMPRESSION: NG tube tip in the antrum of the stomach. Assessment & Plan - Diagnosis (1) Abdominal pain Qualifiers: Abdominal location: generalized Qualified Code(s): R10.84 - Generalized abdominal pain Is this a current diagnosis for this admission?: Yes (2) Pyosalpinx Is this a current diagnosis for this admission?: Yes Plan: 39 yo with pyosalpinx from PID, abdominal pain and nausea -VSS now. Afebrile. She had elevated b/p earlier and was treated. Last pressure was 158 systolic. -NPO with NGT> She still has nausea but has not vomiting. Continue NGT -Pain in abdomen-RLQ. Reports medicine helps but short term . Continue PRN meds -PID with pyosalpinx: continue antibiotics. Plan to "calm down" acute inflammation of this process with in the abodmen and plan remove at that time of the tube -Continue supportive care. -Gen surg consulted. Appreciate recs and assistance (3) Vomiting Qualifiers: Vomiting type: unspecified Vomiting Intractability: non-intractable Nausea presence: without nausea Qualified Code(s): R11.11 - Vomiting without nausea Is this a current diagnosis for this admission?: Yes (4) PID (acute pelvic inflammatory disease) Is this a current diagnosis for this admission?: Yes (5) Tobacco abuse Is this a current diagnosis for this admission?: Yes - Time Time Spent with patient: 15-24 minutes Medications reviewed and adjusted accordingly: Yes
[2019-09-23] MEDS: DOCUSATE SODIUM 100 MG/10 ML UDC NG SCH ×2 (12:07→17:33)
[2019-09-23] MEDS: CEFOXITIN 1 GM/D5W RTU 1 GM/50 ML RTUPB IV SCH ×2 (12:50→22:44)
[2019-09-23] MEDS: PROMETHAZINE HCL INJ 25 MG/1 ML VIAL IV PRN (12:53)
[2019-09-23] MEDS ORDERED: ACETAMINOPHEN 1,000 MG/100 ML RTUPB IV ONE (13:00)
[2019-09-23] MEDS ORDERED: DEXTROSE 5%-1/2 NORMAL SALINE 1,000 ML with POTASSIUM CHLORIDE 20 MEQ IV PRN ×2 (14:57)
[2019-09-23] MEDS: PANTOPRAZOLE SODIUM 40 MG VIAL IV SCH ×2 (15:47→22:44)
[2019-09-23 16:22] LABS: HEMOGLOBIN 12.6 g/dL (12.0-15.5); TOTAL CELLS COUNTED % (AUTO) 100 %
[2019-09-23 16:25] LABS: ABSOLUTE LYMPHOCYTES (AUTO) 0.7 10^3/uL (0.5-4.7); ABSOLUTE MONOCYTES (AUTO) 0.6 10^3/uL (0.1-1.4); ABSOLUTE NEUT (AUTO) 10.7 10^3/uL (1.7-8.2); BASOPHILS % (AUTO) 0.2 % (0-2); HEMATOCRIT 36.7 % (36.0-47.0); LYMPHOCYTES % (AUTO) 5.5 % (13-45); MEAN CORPUSCULAR HEMOGLOBIN 32.4 pg (27.0-33.4); MEAN CORPUSCULAR HGB CONC 34.3 g/dL (32.0-36.0); MEAN CORPUSCULAR VOLUME 94 fl (80-97); MONOCYTES % (AUTO) 4.8 % (3-13); PLATELET COUNT 463 10^3/uL (150-450); RED BLOOD COUNT 3.89 10^6/uL (3.72-5.28); RED CELL DISTRIBUTION WIDTH 13.7 % (11.5-14.0); SEGMENTED NEUTROPHILS % (AUTO) 89.5 % (42-78); WHITE BLOOD COUNT 11.9 10^3/uL (4.0-10.5)
[2019-09-23 16:38] LABS: ALBUMIN 3.5 g/dL (3.5-5.0); ALKALINE PHOSPHATASE 75 U/L (38-126); ANION GAP 13 (5-19); ASPARTATE AMINO TRANSFERASE 12 U/L (14-36); BILIRUBIN,DIRECT 0.2 mg/dL (0.0-0.4); BILIRUBIN,TOTAL 0.6 mg/dL (0.2-1.3); BLOOD UREA NITROGEN 7 mg/dL (7-20); CARBON DIOXIDE 21 mmol/L (22-30); CHLORIDE 107 mmol/L (98-107); GLUCOSE 114 mg/dL (75-110); TOTAL PROTEIN 6.7 g/dL (6.3-8.2)
[2019-09-23] MEDS: KETOROLAC TROMETHAMINE INJ/PF 30 MG/1 ML SDV IV PRN (17:38)
[2019-09-23] MEDS: POTASSI CL 20 MEQ/D5-1/2NS 1L 1000 ML IV PRN (17:43)
[2019-09-24] MEDS: KETOROLAC TROMETHAMINE INJ/PF 30 MG/1 ML SDV IV PRN (02:32)
[2019-09-24] MEDS: HYDROMORPHONE HCL INJ/PF 2 MG/ML AMPULE IV PRN ×4 (05:35→21:43)
--- NOTE | 2019-09-24 08:29 | PDOC PROGRESS REPORT ---
Subjective Progress Note for:: 09/24/19 Subjective:: The patient is comfortable, she reports one bowel movement this morning Reason For Visit: PYOSLALPINX,PERITONITIS Physical Exam Vital Signs: Temp Pulse Resp BP Pulse Ox 98.0 F 85 18 157/90 H 99 09/24/19 04:00 09/24/19 04:00 09/24/19 04:00 09/24/19 04:00 09/24/19 04:00 Intake & Output 09/23/19 09/24/19 09/25/19 06:59 06:59 06:59 Intake Total 1100 450 350 Output Total 1975 Balance 1100 -1525 350 Weight 87.9 kg 88.7 kg General appearance: PRESENT: no acute distress Respiratory exam: PRESENT: clear to auscultation iggy Cardiovascular exam: PRESENT: RRR GI/Abdominal exam: PRESENT: hypoactive bowel sounds, soft, tenderness Results Laboratory Results: 09/23/19 16:00 09/23/19 16:00 09/23/19 09/23/19 16:00 16:00 WBC 11.9 H RBC 3.89 Hgb 12.6 Hct 36.7 MCV 94 MCH 32.4 MCHC 34.3 RDW 13.7 Plt Count 463 H Seg Neutrophils % 89.5 H Sodium 140.8 Potassium 4.0 Chloride 107 Carbon Dioxide 21 L Anion Gap 13 BUN 7 Creatinine 0.59 Est GFR ( Amer) > 60 Glucose 114 H Calcium 9.0 Total Bilirubin 0.6 AST 12 L Alkaline Phosphatase 75 Total Protein 6.7 Albumin 3.5 Impressions: Abdomen/Pelvis CT 09/23/19 01:44 IMPRESSION: Inflammatory process in the right adnexa with an appearance over multiple prior exams most suggestive of pyosalpinx. This is now causing and at least partial small bowel obstruction. Recommend surgical consultation. There is also some enhancement of the peritoneum around free fluid in the pelvis raising a question of developing peritonitis. This case was discussed by myself by phone with ROCKY Agee in the emergency department taking care of the patient, on 09/23/2019 at 2:05 AM. KUB X-Ray 09/23/19 05:16 IMPRESSION: NG tube tip in the antrum of the stomach. Assessment & Plan - Diagnosis (1) Adynamic ileus Is this a current diagnosis for this admission?: Yes - Time Time Spent with patient: 15-24 minutes - Plan Summary Plan Summary: Assessment: Hospital day #3 for PID right lower abdomen Vital signs stable afebrile Minimal nasogastric tube output Return of bowel function this morning with one bowel movement Abdomen soft Resolved adynamic ileus Plan: I am recommending to clamp the nasogastric tube for 4 hours, check residuals, if less than 100 mL the nasogastric tube can be removed and the patient's diet can be advanced to clear liquid and as tolerated. I will sign off. Please call me with questions.
[2019-09-24] MEDS: DOCUSATE SODIUM 100 MG/10 ML UDC NG SCH ×2 (09:30→17:29)
[2019-09-24] MEDS: PANTOPRAZOLE SODIUM 40 MG VIAL IV SCH ×2 (09:30→21:00)
[2019-09-24] MEDS: CEFOXITIN 1 GM/D5W RTU 1 GM/50 ML RTUPB IV SCH ×2 (09:31→21:01)
[2019-09-24] MEDS: DOXYCYCLINE HYCLATE 100 MG in DEXTROSE 5%-WATER 250 ML IV SCH ×2 (09:31→21:00)
[2019-09-24] MEDS: METRONIDAZOLE 500 MG/NS RTU 500 MG/100 ML RTUPB IV SCH ×2 (09:31→17:32)
[2019-09-24] MEDS: POTASSI CL 20 MEQ/D5-1/2NS 1L 1000 ML IV PRN ×2 (09:32→19:45)
--- NOTE | 2019-09-24 10:58 | PDOC PROGRESS REPORT ---
Subjective Progress Note for:: 09/24/19 Subjective:: feeling better. no further nausea. +flatus and BM. pain improved Reason For Visit: PYOSLALPINX,PERITONITIS Physical Exam - Physical Exam Vital Signs: Temp Pulse Resp BP Pulse Ox 98.2 F 69 16 150/87 H 100 09/24/19 08:42 09/24/19 08:42 09/24/19 08:42 09/24/19 08:42 09/24/19 08:42 Intake & Output 09/23/19 09/24/19 09/25/19 06:59 06:59 06:59 Intake Total 1100 1450 350 Output Total 1975 Balance 1100 -525 350 Weight 87.9 kg 88.7 kg General appearance: PRESENT: no acute distress, cooperative GI/Abdominal exam: PRESENT: soft - no tenderness ilicited with deep palpation Result Laboratory Results: 09/23/19 16:00 09/23/19 16:00 09/23/19 09/23/19 16:00 16:00 WBC 11.9 H RBC 3.89 Hgb 12.6 Hct 36.7 MCV 94 MCH 32.4 MCHC 34.3 RDW 13.7 Plt Count 463 H Seg Neutrophils % 89.5 H Sodium 140.8 Potassium 4.0 Chloride 107 Carbon Dioxide 21 L Anion Gap 13 BUN 7 Creatinine 0.59 Est GFR ( Amer) > 60 Glucose 114 H Calcium 9.0 Total Bilirubin 0.6 AST 12 L Alkaline Phosphatase 75 Total Protein 6.7 Albumin 3.5 Impressions: Abdomen/Pelvis CT 09/23/19 01:44 IMPRESSION: Inflammatory process in the right adnexa with an appearance over multiple prior exams most suggestive of pyosalpinx. This is now causing and at least partial small bowel obstruction. Recommend surgical consultation. There is also some enhancement of the peritoneum around free fluid in the pelvis raising a question of developing peritonitis. This case was discussed by myself by phone with ROCKY Agee in the emergency department taking care of the patient, on 09/23/2019 at 2:05 AM. KUB X-Ray 09/23/19 05:16 IMPRESSION: NG tube tip in the antrum of the stomach. Assessment & Plan - Diagnosis (1) Abdominal pain Qualifiers: Abdominal location: generalized Qualified Code(s): R10.84 - Generalized abdominal pain Is this a current diagnosis for this admission?: Yes (2) Peritonitis Is this a current diagnosis for this admission?: Yes (3) Pyosalpinx Is this a current diagnosis for this admission?: Yes (4) Vomiting Qualifiers: Vomiting type: unspecified Vomiting Intractability: non-intractable Nausea presence: without nausea Qualified Code(s): R11.11 - Vomiting without nausea Is this a current diagnosis for this admission?: Yes (5) PID (acute pelvic inflammatory disease) Is this a current diagnosis for this admission?: Yes (6) TOA (tubo-ovarian abscess) Is this a current diagnosis for this admission?: Yes (7) Tobacco abuse Is this a current diagnosis for this admission?: Yes - Time Time Spent with patient: Less than 15 minutes - Inpatient Certification Based on my medical assessment, after consideration of the patient's comorbidities, presenting symptoms, or acuity I expect that the services needed warrant INPATIENT care.: Yes I certify that my determination is in accordance with my understanding of Medicare's requirements for reasonable and necessary INPATIENT services [42 CFR 412.3e].: Yes Medical Necessity: Need for IV Antibiotics - Plan Summary Plan Summary: d/w patient that would prefer she have 72 hours of IV antibiotics and then would go home of PO abx. Would like to perform salpingooopherectomy in approx 2-3 wks when infection is adequately cooled off. voices understanding. Per Gen Surg the bowel obsturction is more an ileus and is resolved. will continue tiwht planned NGT remval and will give PO trial later today.,
[2019-09-24] MEDS: KETOROLAC TROMETHAMINE INJ/PF 30 MG/1 ML SDV IV SCH ×2 (11:37→17:32)
[2019-09-24] MEDS: PROMETHAZINE HCL INJ 25 MG/1 ML VIAL IV PRN (20:53)
[2019-09-24] MEDS ORDERED: LISINOPRIL 10 MG TABLET PO ONE (23:45)
[2019-09-24] MEDS ORDERED: HYDROCHLOROTHIAZIDE 25 MG TABLET PO ONE (23:45)
[2019-09-25] MEDS: KETOROLAC TROMETHAMINE INJ/PF 30 MG/1 ML SDV IV SCH ×2 (00:01→06:45)
[2019-09-25] MEDS ORDERED: HYDRALAZINE HCL INJ/PF 20 MG/1 ML SDV ONE ×2 (01:30→12:31)
[2019-09-25] MEDS ORDERED: HYDRALAZINE HCL INJ/PF 20 MG/1 ML SDV IV ONE ×3 (01:45→13:30)
[2019-09-25] MEDS: PROMETHAZINE HCL INJ 25 MG/1 ML VIAL IV PRN ×3 (02:28→13:08)
[2019-09-25] MEDS: HYDROMORPHONE HCL INJ/PF 2 MG/ML AMPULE IV PRN (03:51)
[2019-09-25 07:20] LABS: HEMATOCRIT 39.8 % (36.0-47.0); HEMOGLOBIN 13.6 g/dL (12.0-15.5); MEAN CORPUSCULAR HEMOGLOBIN 31.8 pg (27.0-33.4); MEAN CORPUSCULAR HGB CONC 34.1 g/dL (32.0-36.0); MEAN CORPUSCULAR VOLUME 93 fl (80-97); PLATELET COUNT 551 10^3/uL (150-450); RED BLOOD COUNT 4.26 10^6/uL (3.72-5.28); RED CELL DISTRIBUTION WIDTH 13.7 % (11.5-14.0); WHITE BLOOD COUNT 9.4 10^3/uL (4.0-10.5)
[2019-09-25 07:47] LABS: URINE AMPHETAMINES SCREEN NEGATIVE; URINE BARBITURATES SCREEN NEGATIVE; URINE BENZODIAZEPINES SCREEN NEGATIVE; URINE COCAINE SCREEN NEGATIVE; URINE METHADONE SCREEN NEGATIVE; URINE PHENCYCLIDINE SCREEN NEGATIVE
[2019-09-25 07:52] LABS: URINE MARIJUANA (THC) SCREEN UNCONFIRMED POSITIVE
--- NOTE | 2019-09-25 09:42 | PDOC PROGRESS REPORT ---
Subjective Progress Note for:: 09/25/19 Subjective:: pt states she feels bad today Reason For Visit: PYOSLALPINX,PERITONITIS Physical Exam - Physical Exam Vital Signs: Temp Pulse Resp BP Pulse Ox 98.8 F 88 18 171/95 H 99 09/25/19 07:22 09/25/19 07:22 09/25/19 03:34 09/25/19 07:22 09/25/19 07:22 Intake & Output 09/24/19 09/25/19 09/26/19 06:59 06:59 06:59 Intake Total 1450 2450 Output Total 1975 900 200 Balance -525 1550 -200 Weight 88.7 kg 86.8 kg General appearance: PRESENT: mild distress Respiratory exam: PRESENT: clear to auscultation iggy Cardiovascular exam: PRESENT: RRR GI/Abdominal exam: PRESENT: soft, tenderness Result Laboratory Results: 09/25/19 06:50 09/23/19 16:00 09/25/19 06:50 WBC 9.4 RBC 4.26 Hgb 13.6 Hct 39.8 MCV 93 MCH 31.8 MCHC 34.1 RDW 13.7 Plt Count 551 H Impressions: Abdomen/Pelvis CT 09/23/19 01:44 IMPRESSION: Inflammatory process in the right adnexa with an appearance over multiple prior exams most suggestive of pyosalpinx. This is now causing and at least partial small bowel obstruction. Recommend surgical consultation. There is also some enhancement of the peritoneum around free fluid in the pelvis raising a question of developing peritonitis. This case was discussed by myself by phone with ROCKY Agee in the emergency department taking care of the patient, on 09/23/2019 at 2:05 AM. KUB X-Ray 09/23/19 05:16 IMPRESSION: NG tube tip in the antrum of the stomach. Assessment & Plan - Diagnosis (1) Abdominal pain Qualifiers: Abdominal location: generalized Qualified Code(s): R10.84 - Generalized abdominal pain Is this a current diagnosis for this admission?: Yes (2) PID (acute pelvic inflammatory disease) Is this a current diagnosis for this admission?: Yes (3) TOA (tubo-ovarian abscess) Is this a current diagnosis for this admission?: Yes - Time Time Spent with patient: Less than 15 minutes - Plan Summary Plan Summary: continue antibiotics for 72 hours total
[2019-09-25] MEDS ORDERED: LISINOPRIL 10 MG TABLET PO SCH (10:00)
[2019-09-25] MEDS: PANTOPRAZOLE SODIUM 40 MG VIAL IV SCH ×2 (10:09→22:33)
[2019-09-25] MEDS: OXYCODONE-ACETAMINOPHEN 5-325 MG TABLET PO PRN ×3 (10:10→22:32)
[2019-09-25] MEDS: CEFOXITIN 1 GM/D5W RTU 1 GM/50 ML RTUPB IV SCH ×2 (10:10→21:56)
[2019-09-25] MEDS: IBUPROFEN 800 MG TABLET PO PRN ×2 (10:13→18:16)
[2019-09-25] MEDS: METRONIDAZOLE 500 MG/NS RTU 500 MG/100 ML RTUPB IV SCH ×2 (10:54→18:18)
[2019-09-25] MEDS: LISINOPRIL 10 MG TABLET PO SCH (11:04)
[2019-09-25] MEDS: HYDROCHLOROTHIAZIDE 25 MG TABLET PO SCH (11:05)
[2019-09-25] MEDS: DOXYCYCLINE HYCLATE 100 MG in DEXTROSE 5%-WATER 250 ML IV SCH ×2 (11:53→22:34)
[2019-09-25] MEDS: POTASSI CL 20 MEQ/D5-1/2NS 1L 1000 ML IV PRN (12:40)
[2019-09-25] MEDS: DOCUSATE SODIUM 100 MG/10 ML UDC NG SCH ×2 (12:44→18:14)
[2019-09-25] MEDS: HYDRALAZINE HCL 10 MG TABLET PO SCH ×2 (18:16→23:51)
[2019-09-25] MEDS ORDERED: NICOTINE 21 MG/24 HR PATCH.TD24 TD PRN (19:14)
[2019-09-26] MEDS: IBUPROFEN 800 MG TABLET PO PRN (02:52)
[2019-09-26] MEDS: POTASSI CL 20 MEQ/D5-1/2NS 1L 1000 ML IV PRN (02:53)
[2019-09-26] MEDS: HYDRALAZINE HCL 10 MG TABLET PO SCH (05:30)
[2019-09-26] MEDS: OXYCODONE-ACETAMINOPHEN 5-325 MG TABLET PO PRN (07:29)
[2019-09-26 08:23] LABS: ABSOLUTE EOSINOPHILS # (AUTO) 0.1 10^3/uL (0.0-0.6); ABSOLUTE LYMPHOCYTES (AUTO) 1.9 10^3/uL (0.5-4.7); ABSOLUTE MONOCYTES (AUTO) 1.2 10^3/uL (0.1-1.4); ABSOLUTE NEUT (AUTO) 6.3 10^3/uL (1.7-8.2); BASOPHILS % (AUTO) 0.4 % (0-2); EOSINOPHILS % (AUTO) 1.3 % (0-6); HEMATOCRIT 38.6 % (36.0-47.0); HEMOGLOBIN 13.2 g/dL (12.0-15.5); LYMPHOCYTES % (AUTO) 19.9 % (13-45); MEAN CORPUSCULAR HEMOGLOBIN 31.9 pg (27.0-33.4); MEAN CORPUSCULAR HGB CONC 34.3 g/dL (32.0-36.0); MEAN CORPUSCULAR VOLUME 93 fl (80-97); MONOCYTES % (AUTO) 12.6 % (3-13); PLATELET COUNT 622 10^3/uL (150-450); RED BLOOD COUNT 4.15 10^6/uL (3.72-5.28); RED CELL DISTRIBUTION WIDTH 13.8 % (11.5-14.0); SEGMENTED NEUTROPHILS % (AUTO) 65.8 % (42-78); TOTAL CELLS COUNTED % (AUTO) 100 %; WHITE BLOOD COUNT 9.7 10^3/uL (4.0-10.5)
[2019-09-26] MEDS: PANTOPRAZOLE SODIUM 40 MG VIAL IV SCH (09:12)
[2019-09-26] MEDS: LISINOPRIL 10 MG TABLET PO SCH (09:13)
[2019-09-26] MEDS: HYDROCHLOROTHIAZIDE 25 MG TABLET PO SCH (09:13)
[2019-09-26] MEDS: CEFOXITIN 1 GM/D5W RTU 1 GM/50 ML RTUPB IV SCH (09:14)
--- NOTE | 2019-09-26 10:20 | PDOC DISCHARGE SUMMARY ---
Impression - Admit/DC Date/PCP Admission Date/Primary Care Provider: 09/23/19 04:12 UNA MILIAN DO Discharge Date: 09/26/19 - Discharge Diagnosis (1) Uncontrolled hypertension Is this a current diagnosis for this admission?: Yes (2) Abdominal pain Is this a current diagnosis for this admission?: Yes (3) Adynamic ileus Is this a current diagnosis for this admission?: Yes (4) Peritonitis Is this a current diagnosis for this admission?: Yes (5) Pyosalpinx Is this a current diagnosis for this admission?: Yes (6) Vomiting Is this a current diagnosis for this admission?: Yes (7) PID (acute pelvic inflammatory disease) Is this a current diagnosis for this admission?: Yes (8) TOA (tubo-ovarian abscess) Is this a current diagnosis for this admission?: Yes (9) Tobacco abuse Is this a current diagnosis for this admission?: Yes - Additional Information Resuscitation Status: Full Code Discharge Diet: As Tolerated Discharge Activity: Activity As Tolerated Referrals: UNA HUERTAS DO [Primary Care Provider] - Follow up as needed History of Present Illiness History of Present Illness: COLEMAN HENRIQUEZ is a 39 year old female, who presented to the ER for second time in 2 days with increasing nausea/vomiting and abdominal pain. She left AMA two days ago with similar symptoms. The patient has a history of admission last year with PID. CT scan today shows a worsening pyosalpinx with complex collection in the pelvis as well as a SBO with no transition point clearly identified. The patient indicates that she has vomited 3 times here in the ER today. She indicated that she did have stool and flatulance the day before admission. Hospital Course Hospital Course: Hospital course was complicated by her uncontrolled hypertension. Eventually, she was placed on hydralazine, lisinopril and HCTZ. Patient stated that she had no blood pressure issues and she thought that her elevated blood pressure was secondary to her pain. She received antibiotics for almost 72 hours. Her white count is now normal. She remained afebrile during her hospital course. Physical Exam - Physical Exam Vital Signs: Temp Pulse Resp BP Pulse Ox 98.3 F 83 18 171/102 H 100 09/26/19 07:01 09/26/19 07:01 09/26/19 07:01 09/26/19 07:01 09/26/19 07:01 Intake & Output 09/25/19 09/26/19 09/27/19 06:59 06:59 06:59 Intake Total 3450 1550 Output Total 900 200 Balance 2550 1350 Weight 86.8 kg 88.8 kg General appearance: PRESENT: no acute distress Respiratory exam: PRESENT: clear to auscultation iggy Cardiovascular exam: PRESENT: RRR GI/Abdominal exam: PRESENT: normal bowel sounds, soft - Mild tenderness Extremities exam: ABSENT: calf tenderness, clubbing, full ROM, joint swelling, pedal edema, tenderness, +1 edema, +2 edema, other Results Laboratory Results: WBC 9.7 10^3/uL (4.0-10.5) 09/26/19 06:19 RBC 4.15 10^6/uL (3.72-5.28) 09/26/19 06:19 Hgb 13.2 g/dL (12.0-15.5) 09/26/19 06:19 Hct 38.6 % (36.0-47.0) 09/26/19 06:19 MCV 93 fl (80-97) 09/26/19 06:19 MCH 31.9 pg (27.0-33.4) 09/26/19 06:19 MCHC 34.3 g/dL (32.0-36.0) 09/26/19 06:19 RDW 13.8 % (11.5-14.0) 09/26/19 06:19 Plt Count 622 10^3/uL (150-450) H 09/26/19 06:19 Lymph % (Auto) 19.9 % (13-45) 09/26/19 06:19 Rush % (Auto) 12.6 % (3-13) 09/26/19 06:19 Eos % (Auto) 1.3 % (0-6) 09/26/19 06:19 Baso % (Auto) 0.4 % (0-2) 09/26/19 06:19 Absolute Neuts (auto) 6.3 10^3/uL (1.7-8.2) 09/26/19 06:19 Absolute Lymphs (auto) 1.9 10^3/uL (0.5-4.7) 09/26/19 06:19 Absolute Monos (auto) 1.2 10^3/uL (0.1-1.4) 09/26/19 06:19 Absolute Eos (auto) 0.1 10^3/uL (0.0-0.6) 09/26/19 06:19 Absolute Basos (auto) 0.0 10^3/uL (0.0-0.2) 09/26/19 06:19 Total Counted 100 09/23/19 00:35 Seg Neutrophils % 65.8 % (42-78) 09/26/19 06:19 Seg Neuts % (Manual) 88 % (42-78) H 09/23/19 00:35 Lymphocytes % (Manual) 8 % (13-45) L 09/23/19 00:35 Monocytes % (Manual) 4 % (3-13) 09/23/19 00:35 Eosinophils % (Manual) 0 % (0-6) 09/23/19 00:35 Basophils % (Manual) 0 % (0-2) 09/23/19 00:35 Abs Neuts (Manual) 9.9 10^3/uL (1.7-8.2) H 09/23/19 00:35 Abs Lymphs (Manual) 0.9 10^3/uL (0.5-4.7) 09/23/19 00:35 Abs Monocytes (Manual) 0.5 10^3/uL (0.1-1.4) 09/23/19 00:35 Absolute Eos (Manual) 0.0 10^3/uL (0.0-0.6) 09/23/19 00:35 Abs Basophils (Manual) 0.0 10^3/uL (0.0-0.2) 09/23/19 00:35 Platelet Comment ADEQUATE 09/23/19 00:35 RBC Morph Comment NORMO-CYTIC/CHROMIC 09/23/19 00:35 VBG pH 7.42 (7.30-7.42) 09/23/19 00:35 VBG pCO2 40.0 mmHg (35-63) 09/23/19 00:35 VBG HCO3 25.6 mmol/L (20-32) 09/23/19 00:35 VBG Base Excess 1.2 mmol/L 09/23/19 00:35 Sodium 140.8 mmol/L (137-145) 09/23/19 16:00 Potassium 4.0 mmol/L (3.6-5.0) 09/23/19 16:00 Chloride 107 mmol/L (98-107) 09/23/19 16:00 Carbon Dioxide 21 mmol/L (22-30) L 09/23/19 16:00 Anion Gap 13 (5-19) 09/23/19 16:00 BUN 7 mg/dL (7-20) 09/23/19 16:00 Creatinine 0.59 mg/dL (0.52-1.25) 09/23/19 16:00 Est GFR ( Amer) > 60 (>60) 09/23/19 16:00 Est GFR (MDRD) Non-Af > 60 (>60) 09/23/19 16:00 Glucose 114 mg/dL (75-110) H 09/23/19 16:00 Lactic Acid 0.7 mmol/L (0.7-2.1) 09/23/19 00:35 Calcium 9.0 mg/dL (8.4-10.2) 09/23/19 16:00 Total Bilirubin 0.6 mg/dL (0.2-1.3) 09/23/19 16:00 Direct Bilirubin 0.2 mg/dL (0.0-0.4) 09/23/19 16:00 Neonat Total Bilirubin Not Reportable 09/23/19 16:00 Neonat Direct Bilirubin Not Reportable 09/23/19 16:00 Neonat Indirect Bili Not Reportable 09/23/19 16:00 AST 12 U/L (14-36) L 09/23/19 16:00 ALT 10 U/L (<35) 09/23/19 16:00 Alkaline Phosphatase 75 U/L (38-126) 09/23/19 16:00 Total Protein 6.7 g/dL (6.3-8.2) 09/23/19 16:00 Albumin 3.5 g/dL (3.5-5.0) 09/23/19 16:00 Serum HCG, Qual NEGATIVE (NEGATIVE) 09/23/19 00:35 Urine Color YELLOW 09/23/19 01:23 Urine Appearance CLEAR 09/23/19 01:23 Urine pH 8.0 (5.0-9.0) 09/23/19 01:23 Ur Specific [place] 1.008 09/23/19 01:23 Urine Protein NEGATIVE mg/dL (NEGATIVE) 09/23/19 01:23 Urine Glucose (UA) NEGATIVE mg/dL (NEGATIVE) 09/23/19 01:23 Urine Ketones 20 mg/dL (NEGATIVE) H 09/23/19 01:23 Urine Blood SMALL (NEGATIVE) H 09/23/19 01:23 Urine Nitrite NEGATIVE (NEGATIVE) 09/23/19 01:23 Urine Bilirubin NEGATIVE (NEGATIVE) 09/23/19 01:23 Urine Urobilinogen NEGATIVE mg/dL (<2.0) 09/23/19 01:23 Ur Leukocyte Esterase NEGATIVE (NEGATIVE) 09/23/19 01:23 Urine WBC (Auto) 2 /HPF 09/23/19 01:23 Urine RBC (Auto) 30 /HPF 09/23/19 01:23 Squamous Epi Cells Auto 2 /HPF 09/23/19 01:23 Urine Ascorbic Acid 20 (NEGATIVE) H 09/23/19 01:23 Urine Opiates Screen UNCONFIRMED POSITIVE 09/25/19 07:09 Urine Methadone Screen NEGATIVE 09/25/19 07:09 Ur Barbiturates Screen NEGATIVE 09/25/19 07:09 Ur Phencyclidine Scrn NEGATIVE 09/25/19 07:09 Ur Amphetamines Screen NEGATIVE 09/25/19 07:09 U Benzodiazepines Scrn NEGATIVE 09/25/19 07:09 Urine Cocaine Screen NEGATIVE 09/25/19 07:09 U Marijuana (THC) Screen UNCONFIRMED POSITIVE 09/25/19 07:09 Impressions: Abdomen/Pelvis CT 09/23/19 01:44 IMPRESSION: Inflammatory process in the right adnexa with an appearance over multiple prior exams most suggestive of pyosalpinx. This is now causing and at least partial small bowel obstruction. Recommend surgical consultation. There is also some enhancement of the peritoneum around free fluid in the pelvis raising a question of developing peritonitis. This case was discussed by myself by phone with ROCKY Agee in the emergency department taking care of the patient, on 09/23/2019 at 2:05 AM. KUB X-Ray 09/23/19 05:16 IMPRESSION: NG tube tip in the antrum of the stomach. Plan Plan of Treatment: 1. Discharge home today 2. Treat uncontrolled hypertension 3. Complete course of antibiotics 4. Pain management 5. Follow-up in the office in 2 weeks Time Spent: Greater than 30 Minutes Stroke Is this a Stroke Patient?: No Acute Heart Failure - Is this a Heart Failure Patient?: No
[2019-09-26 10:30] VITALS: BP 152/92
== END 2019-09-26 11:40 | disposition home or self-care (01) | DRG 388 ==
LOC: ER 23:11 → EH 09-23 04:12 → 2N 09-23 06:26
PROVIDERS: ADMIT Obstetrics & Gynecology; ATTEND Obstetrics & Gynecology
PROC: 0D9670Z Drainage of Stomach with Drainage Device, Via Natural or Artificial Opening (ICD-10-PCS; principal; 2019-09-23)
DX: K56.0 Paralytic ileus (principal); K65.9 Peritonitis, unspecified; N73.0 Acute parametritis and pelvic cellulitis; N70.93 Salpingitis and oophoritis, unspecified; R11.11 Vomiting without nausea; I10 Essential (primary) hypertension; Z72.0 Tobacco use
CPT/HCPCS: 36415; 74018; 74177; 80053; 80307; 81001; 82803; 83605; 84703; 85025; 85027; 87040; 87070; 96365; 96367; 96375; 99285; C9113; J0131; J0360; J0694; J1170; J1885; J2270; J2405; J2550; J3010; J3480; J3490; J7030; J7060

== ENCOUNTER 2019-11-29 06:24 | Day surgery (SDC) | payer MEDICAID ==
[2019-11-23 11:08] LABS: APPEARANCE,URINE SLIGHTLY-CLOUDY; BILIRUBIN,URINE NEGATIVE (NEGATIVE); COLOR,URINE YELLOW; GLUCOSE, URINE NEGATIVE (NEGATIVE); KETONES,URINE NEGATIVE (NEGATIVE); LEUKOCYTE ESTERASE,URINE NEGATIVE (NEGATIVE); NITRITE,URINE NEGATIVE (NEGATIVE); PROTEIN,URINE 30 mg/dL (NEGATIVE); URINE SPECIFIC GRAVITY 1.027; UROBILINOGEN,URINE NEGATIVE mg/dL (<2.0)
[2019-11-23 14:01] LABS: HEMATOCRIT 38.3 % (36.0-47.0); HEMOGLOBIN 13.4 g/dL (12.0-15.5); MEAN CORPUSCULAR HEMOGLOBIN 32.5 pg (27.0-33.4); MEAN CORPUSCULAR HGB CONC 34.9 g/dL (32.0-36.0); MEAN CORPUSCULAR VOLUME 93 fl (80-97); PLATELET COUNT 498 10^3/uL (150-450); RED BLOOD COUNT 4.11 10^6/uL (3.72-5.28); RED CELL DISTRIBUTION WIDTH 13.8 % (11.5-14.0); WHITE BLOOD COUNT 6.3 10^3/uL (4.0-10.5)
[2019-11-23 14:24] LABS: ALBUMIN 4.8 g/dL (3.5-5.0); ALKALINE PHOSPHATASE 67 U/L (38-126); ANION GAP 10 (5-19); ASPARTATE AMINO TRANSFERASE 22 U/L (14-36); BILIRUBIN,DIRECT 0.3 mg/dL (0.0-0.4); BILIRUBIN,TOTAL 0.3 mg/dL (0.2-1.3); BLOOD UREA NITROGEN 11 mg/dL (7-20); CALCIUM 9.8 mg/dL (8.4-10.2); CARBON DIOXIDE 27 mmol/L (22-30); CHLORIDE 103 mmol/L (98-107); GLUCOSE 99 mg/dL (75-110)
--- NOTE | 2019-11-23 21:01 | EKG REPORT ---
SEVERITY:- NORMAL ECG - SINUS RHYTHM : Confirmed by: Lucille Meza 23-Nov-2019 21:00:19
[~2019-11-29 06:24] MED LIST: AZITHROMYCIN 500 MG in DEXTROSE 5%-WATER 250 ML IV PRN; LACTATED RINGERS 1000 ML IV PRN; LIDOCAINE 0.5% INJ-PF (5 MG/ML) 50 ML SDV SUBCUT PRN
[2019-11-29] MEDS ORDERED: HYDROMORPHONE HCL INJ/PF 2 MG/ML AMPULE ONE (06:45)
[2019-11-29] MEDS ORDERED: PROPOFOL INJ 200 MG/20 ML VIAL IV ONE (06:45)
[2019-11-29] MEDS ORDERED: MIDAZOLAM 2 MG/2 ML INJ ONE (06:45)
[2019-11-29] MEDS ORDERED: FENTANYL CITRATE INJ/PF 100 MCG/2 ML AMPUL ONE ×3 (06:45→09:14)
[2019-11-29] MEDS ORDERED: MORPHINE SULFATE 10 MG/ML INJ IV PRN ×2 (06:51→09:42)
[2019-11-29] MEDS ORDERED: DIPHENHYDRAMINE HCL 50 MG/ML VIAL IV PRN (06:51)
[2019-11-29] MEDS ORDERED: MEPERIDINE HCL/PF INJ 25 MG/1 ML DISP.SYRIN IV PRN (06:51)
[2019-11-29] MEDS ORDERED: FENTANYL CITRATE INJ/PF 100 MCG/2 ML AMPUL IV PRN ×2 (06:51)
[2019-11-29] MEDS ORDERED: PROMETHAZINE HCL INJ 25 MG/1 ML VIAL IV PRN ×3 (06:51→09:44)
--- NOTE | 2019-11-29 07:28 | RADIOLOGY REPORT (SQ) ---
Chest single view on 11/29/2019 at 6:49 AM CLINICAL INDICATION: Preop robotic laparoscopic right salpingooophorectomy and lysis of adhesions COMPARISON: 09/21/2019 FINDINGS: The lungs are clear. Cardiac, hilar and mediastinal contours are within normal limits. Pulmonary vascularity is within normal limits. No bony abnormality is noted. IMPRESSION: No active disease.
[2019-11-29] MEDS: FENTANYL CITRATE INJ/PF 100 MCG/2 ML AMPUL IV PRN ×2 (09:10→09:20)
[2019-11-29] MEDS ORDERED: ACETAMINOPHEN 1,000 MG/100 ML RTUPB IV ONE (09:35)
[2019-11-29] MEDS ORDERED: KETOROLAC TROMETHAMINE INJ/PF 30 MG/1 ML SDV ONE (09:35)
[2019-11-29] MEDS ORDERED: OXYCODONE-ACETAMINOPHEN 5-325 MG TABLET PO PRN (09:43)
[2019-11-29] MEDS ORDERED: IBUPROFEN 800 MG TABLET PO PRN (09:44)
[2019-11-29] MEDS ORDERED: ACETAMINOPHEN 1,000 MG/100 ML RTUPB IV PRN (09:45)
[2019-11-29] MEDS ORDERED: OXYCODONE-ACETAMINOPHEN 5-325 MG TABLET ONE ×2 (10:09→11:34)
--- NOTE | 2019-11-29 12:08 | Operative Report ---
Operative Report DATE OF SURGERY: 11/29/19 PREOPERATIVE DIAGNOSIS: Chronic salpingitis, hydrosalpinx POSTOPERATIVE DIAGNOSIS: Same OPERATION: Robotic assisted right salpingo-oophorectomy and lysis of adhesions SURGEON: ANIBAL HAYES 1ST MANAGER BUSINESS: SHERI RIOS ANESTHESIA: GA TISSUE REMOVED OR ALTERED: Right ovary and fallopian tube, left ovarian biopsy COMPLICATIONS: None ESTIMATED BLOOD LOSS: 50 cc INTRAOPERATIVE FINDINGS: Right ovary and fallopian tube were adhered to the anterior aspect of the uterus, right utero-ovarian ligament slightly torsed due to this adhesion. Left fallopian tube slightly dilated small number of adhesions at the fimbriated end. Dark gunpowder lesions on the ovary x2 removed and sent for pathology PROCEDURE: The patient was prepared and draped in a normal sterile fashion in a dorsal lithotomy position. A Brown catheter was placed to gravity under sterile conditions. A sterile speculum was placed into the vagina and a Hulka clamp was placed through the cervix for uterine manipulation. Killam was removed gloves were changed and attention was turned to the upper portion of the case. An incision was made approximately 1-1/2 cm above the umbilicus and was approximately 2 to 2-1/2 cm long. Incision was made with an 11 blade and carried through to the underlying layer of fascia with Mclean scissors. Fascia was grasped with 2 Paras clamps and the fascia was excised using the Mayos. The incision was extended laterally with the Mayos to accommodate the full length of the incision. Stay sutures were placed with 0 Vicryl at the apex of each side of the incision. the GelPort was then placed in a normal fashion and the abdomen was inflated with approximately 2 L of CO2 gas through the air seal port. Annika was introduced and the patient was placed in steep Trendelenburg. Above findings were noted. Under direct visualization 2 5 mm ports were placed on either side of the umbilicus approximately 10 cm from the umbilicus. The robot was docked and instruments were placed with the monopolar scissors on the right and the bipolar fenestrated on the left. Inspection of the left fallopian tube and ovary yielded the above findings. The adhesions were transected and the biopsies were taken using the monopolar scissors. Apices were passed off the field and hemostasis was maintained with the monopolar. The rest of the filmy adhesions around the fallopian tube and ovary were broken up with the monopolar scissors dissection as needed. Was then turned to the right portion of the case adnexa was fully inspected with the above findings noted the right fallopian tube and ovary were definitely out of normal anatomic position seen quite a bit of torque on the utero-ovarian ligament. Beginning at the attachment of the IP ligament to the pelvic sidewall being the ovary closely the ligament was coagulated with the bipolar. Transection of the IP ligament was completed with the monopolar scissors being applied as needed for coag for coagulation and hemostasis once the IP ligament was freed from the pelvic sidewall I freed the rest of the adhesions of this ovary from the pelvic sidewall using blunt dissection mostly and some use of the monopolar scissors as these adhesions were quite filmy. Turned to the utero-ovarian ligament and this was coagulated the bipolar and transected using the monopolar scissors the utero-ovarian ligament the ovary until the specimen was completely freed the specimen was then held with atraumatic graspers. Then noted some filmy adhesions of the bladder pelvic cul-de-sac the anterior aspect of the uterus. Were broken up using the monopolar scissors. 2 pieces of Interceed were then introduced into the pelvic cavity aced 1 piece along the lower uterine segment where the bladder adhesions had been. A piece of Interceed was then placed at the IP ligament defect to prevent further adhesion formation. The abdomen was inspected and found to be hemostatic. Instruments were removed. GelPort was open and the specimen was removed via the grasper through this opening. The rest of the GelPort was removed. The fascia was then closed with 2-0 Vicryl. Skin was closed at all 3 sites using 4-0 Vicryl. Tolerated procedure well sponge lap and needle counts were correct x2 and the patient was taken to recovery in stable condition.
[2019-11-29] MEDS ORDERED: DEXAMETHASONE SOD PHOSPHATE INJ 4 MG/1 ML VIAL ONE (13:30)
[2019-11-29] MEDS ORDERED: LIDOCAINE 2% INJ-PF (20 MG/ML) 2 ML AMPUL ONE (13:30)
[2019-11-29] MEDS ORDERED: ROCURONIUM BROMIDE INJ 50 MG/5 ML VIAL IV ONE (13:30)
[2019-11-29] MEDS ORDERED: GLYCOPYRROLATE 1 MG/5 ML VIAL ONE (13:30)
[2019-11-29] MEDS ORDERED: NEOSTIGMINE METHYLSULFATE 10 MG/10 ML VIAL ONE (13:30)
[2019-11-29] MEDS ORDERED: ONDANSETRON HCL INJ/PF 4 MG/2 ML SDV ONE (13:30)
[2019-11-29 13:54] VITALS: BP 141/97
== END 2019-11-29 12:40 | disposition home or self-care (01) ==
LOC: OROUT 06:24
PROVIDERS: ATTEND Obstetrics & Gynecology
DX: N92.0 Excessive and frequent menstruation with regular cycle (principal); N70.11 Chronic salpingitis; N73.6 Female pelvic peritoneal adhesions (postinfective); F17.210 Nicotine dependence, cigarettes, uncomplicated; Z79.899 Other long term (current) drug therapy
CPT/HCPCS: 49321; 58661; S2900; 36415; 71045; 80053; 81001; 81025; 840; 84132; 84703; 85027; 86850; 86900; 86901; 88305; 93005; 93010; A4649; C1765; J0131; J0456; J1100; J1170; J1885; J2250; J2405; J2704; J2710; J3010; J3490; J7060